=== PATIENT | female | born 1940 | race American Indian/Alaskan Native ===

== ENCOUNTER 2019-03-17 05:42 | Inpatient (IN) | payer MEDICARE ==
[2019-03-17] MEDS ORDERED: SODIUM CHLORIDE 0.9% 500 ML 500 ML IV ONE (06:51)
--- NOTE | 2019-03-17 07:00 | Emergency Department Report ---
ED General Adult HPI - General Chief complaint: Medical Clearance Stated complaint: GENERAL ILLNESS Time Seen by Provider: 03/17/19 06:04 Source: patient, family, EMS (ems notes not available at time of chart dictation), RN notes reviewed Mode of arrival: Stretcher Limitations: Physical Limitation, Other (the patient is a poor historian) - History of Present Illness Initial comments: This is a 78-year-old female. The patient has a history of A. fib and is on Coumadin. She also may have a history of hypertension. Primary care physician is with the [facility]. The patient is brought to the hospital by emergency medical services for evaluation. Patient states that she was using the restroom, urinating, and defecating, and shortly thereafter, felt lightheaded, and "flushed." She denies physical pain at this time. To her best recollecti on, she's not had any hematemesis, bright red blood per rectum, or black bowel movements. She denies urinary symptoms. She endorses 2 months of general confusion and weakness, intermittent lightheadedness, painless loss of vision in the left eye for 2 months, and no focal extremity weakness or numbness. Patient describes her sensation of weakness as feeling lightheaded and generally weak. She feels back to her baseline at this time. She denies urinary symptoms at this time. She denies chest pain and shortness of breath. -: This morning Severity scale (0 -10): 0 Consistency: now resolved Improves with: none Worsens with: none - Related Data Home Medications Medication Instructions Recorded Confirmed Last Taken Metoprolol Tartrate 100 mg PO BID 03/17/19 03/17/19 03/16/19 Potassium Chloride [K-Dur] 10 meq PO QDAY 03/17/19 03/17/19 03/16/19 Warfarin [Coumadin] 5 mg PO QDAY 03/17/19 03/17/19 03/16/19 metOLazone [Zaroxolyn] 2.5 mg PO QDAY 03/17/19 03/17/19 03/16/19 Allergies Allergy/AdvReac Type Severity Reaction Status Date / Time No Known Allergies Allergy Unverified 03/17/19 08:29 ED Review of Systems ROS: Stated complaint: GENERAL ILLNESS Other details as noted in HPI Constitutional: malaise, weakness Eyes: vision change. denies: eye discharge ENT: denies: congestion Respiratory: denies: wheezing Cardiovascular: other Gastrointestinal: denies: nausea, vomiting, hematemesis, melena, hematochezia Genitourinary: denies: dysuria Musculoskeletal: denies: back pain Skin: denies: lesions Neurological: weakness Hematological/Lymphatic: denies: easy bleeding ED Past Medical Hx - Past Medical History Previous Medical History?: Yes Additional medical history: Afib - Social History Smoking Status: Never Smoker Substance Use Type: None - Medications Home Medications: Home Medications Medication Instructions Recorded Confirmed Last Taken Type Metoprolol Tartrate 100 mg PO BID 03/17/19 03/17/19 03/16/19 History Potassium Chloride [K-Dur] 10 meq PO QDAY 03/17/19 03/17/19 03/16/19 History Warfarin [Coumadin] 5 mg PO QDAY 03/17/19 03/17/19 03/16/19 History metOLazone [Zaroxolyn] 2.5 mg PO QDAY 03/17/19 03/17/19 03/16/19 History ED Physical Exam - General Limitations: No Limitations General appearance: alert, in no apparent distress - Head Head exam: Present: atraumatic, normocephalic - Eye Eye exam: Present: normal appearance, EOMI. Absent: nystagmus - ENT ENT exam: Present: normal exam, normal orophraynx, mucous membranes moist, normal external ear exam - Neck Neck exam: Present: normal inspection, full ROM. Absent: tenderness, meningismus - Respiratory Respiratory exam: Present: normal lung sounds bilaterally. Absent: respiratory distress - Cardiovascular Cardiovascular Exam: Present: tachycardia, irregular rhythm, normal heart sounds. Absent: systolic murmur, diastolic murmur, rubs, gallop - GI/Abdominal GI/Abdominal exam: Present: soft. Absent: distended, tenderness, guarding, rebound, rigid, pulsatile mass - Rectal Rectal exam: Present: normal inspection, heme (+) stool, black stool, other (chaperoned by nurse Henrietta Waters) - Extremities Exam Extremities exam: Present: other (2+ pulses noted in the bilateral upper, lower extremities. Compartments soft. No long bony tenderness. The pelvis is stable.). Absent: normal inspection (chronic venous stasis, chronic ulcerated lesions noted in the bilateral lower extremities) - Back Exam Back exam: Present: normal inspection. Absent: tenderness, CVA tenderness (R), CVA tenderness (L), paraspinal tenderness, vertebral tenderness - Neurological Exam Neurological exam: Present: alert, other (there is no facial droop. The tongue is midline. The extraocular movements are intact bilaterally. There is 5/5 strength bilateral upper, lower extremities. There is no past pointing. There is normal [id number].) - Psychiatric Psychiatric exam: Present: anxious - Skin Skin exam: Present: warm, dry, intact, normal color. Absent: rash ED Course Vital Signs 03/17/19 03/17/19 03/17/19 06:07 06:27 07:00 Temperature 98.1 F Pulse Rate 103 H 105 H Respiratory 12 12 24 Rate Blood Pressure Blood Pressure 142/67 125/77 [Left] O2 Sat by Pulse 95 95 100 Oximetry 03/17/19 03/17/19 03/17/19 08:00 09:00 10:26 Temperature 97.7 F 98.1 F Pulse Rate 106 H 111 H Respiratory 20 15 Rate Blood Pressure Blood Pressure 127/80 146/99 [Left] O2 Sat by Pulse 99 95 Oximetry 03/17/19 03/17/19 11:12 12:00 Temperature 97.9 F Pulse Rate 86 Respiratory Rate Blood Pressure 150/79 Blood Pressure [Left] O2 Sat by Pulse Oximetry - Reevaluation(s) Reevaluation #1: 03/17/19 06:58 Differential diagnosis, including not limited to: Orthostasis, vagal event, GI bleed, urinary tract infection, pneumonia, A. fib with RVR Assessment and plan: 78-year-old female with a number of nonspecific complaints, found to have black stool on rectal examination, strongly guaiac positive, A. fib with RVR, rate 105-1 25 bpm. We will withhold nancy blocking agents at this time, as this is most likely compensatory. She will be given a fluid bolus. 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 Patient does not endorse physical pain at this time. Her left-sided visual complaints have been present for 2 months. This can be followed up by her outpatient primary care doctor. Once initial laboratory studies have resulted, we will contact the [facility] to discuss admission. Reevaluation #2: 03/17/19 08:07 Laboratory studies reviewed and appreciated, found to have supratherapeutic INR, renal insufficiency, elevated blood urea nitrogen, all suggestive of upper GI b leed. The thrombin complex concentrate ordered. Multiple phone calls have been made to the pharmacy to expedite dispensation of this medication. Vitamin K has been ordered. Protonix has been ordered. IV fluids ordered. Contacted [place] physician, Dr. Nayely Pina, who has agreed to authorize patient's placement in this particular hospital. Gastroenterology on-call is paced. Hospital physician media relations manager paged. Reevaluation #3: 03/17/19 08:09 Dr Burns to admit - Consultations Consultation #1: 03/17/19 08:13 Discussed with gastroenterology on-call, Dr. Grove, he will follow in consultation ED Medical Decision Making - Lab Data Result diagrams: 03/17/19 09:45 03/17/19 06:56 Vital Signs 03/17/19 03/17/19 06:07 06:27 Temperature 98.1 F Pulse Rate 103 H Respiratory 12 12 Rate Blood Pressure 142/67 [Left] O2 Sat by Pulse 95 95 Oximetry - EKG Data -: EKG Interpreted by Ia Rate: tachycardia - EKG Data When compared to previous EKG there are: previous EKG unavailable 03/17/19 07:01 There is no prior EKG available for comparison. The EKG shows A. fib, RVR, 10 8 bpm, motion artifact, QTC 498 ms, premature ventricular contractions, this EKG is abnormal, the EKG is not consistent with ST elevation myocardial infarction. - Radiology Data Radiology results: pending, report reviewed, image reviewed Print Report Referring Physician: JANNA PIERCE Patient Name: NOVELIST STUART Date of : 1940 Sex: Female Report Date: 2019-03-17 Report Status: Finalized Findings [facility] [address] [place] [address] XRay Report Signed Patient: NOVELIST NARCISO MR#: [id number] : 1940 Acct:[id number] Age/Sex: 78 / F ADM Date: 03/17/19 Loc: ED Attending Dr: Ordering Physician: JANNA PIERCE MD Date of Service: 10/09/19 Procedure(s): XR chest 1V ap Accession Number(s): [id number] cc: JANNA PIERCE MD Fluoro Time In Minutes: CHEST 1 VIEW INDICATION / CLINICAL INFORMATION: dizzy lightheaded weakness, A. fib with RVR. COMPARISON: None available. FINDINGS: SUPPORT DEVICES: None. HEART / MEDIASTINUM: Unremarkable allowing for technique. LUNGS / PLEURA: No significant pulmonary or pleural abnormality. No pneumothorax. ADDITIONAL FINDINGS: No significant additional findings. IMPRESSION: 1. No acute findings. Signer Name: Maria De Jesus Lackey MD Signed: 03/17/2019 7:19 AM Workstation Name: [id number] Transcribed By: C Dictated By: Maria De Jesus Lackey MD Electronically Authenticated By: Maria De Jesus Lackey MD Signed Date/Time: 03/17/19 0719 Critical Care Time: Yes Critical care time in (mins) excluding proc time.: 60 Critical care attestation.: If time is entered above; I have spent that time in minutes in the direct care of this critically ill patient, excluding procedure time. ED Disposition Clinical Impression: LGI bleed, Atrial fibrillation with RVR Coumadin toxicity Qualifiers: Encounter type: initial encounter Injury intent: accidental or unintentional Qualified Code(s): T45.511A - Poisoning by anticoagulants, accidental (unintentional), initial encounter Disposition: 09 OP ADMIT IP TO THIS HOSP Is pt being admited?: Yes Does the pt Need Aspirin: No Condition: Critical
--- NOTE | 2019-03-17 07:23 | XRay Report ---
CHEST 1 VIEW INDICATION / CLINICAL INFORMATION: dizzy lightheaded weakness, A. fib with RVR. COMPARISON: None available. FINDINGS: SUPPORT DEVICES: None. HEART / MEDIASTINUM: Unremarkable allowing for technique. LUNGS / PLEURA: No significant pulmonary or pleural abnormality. No pneumothorax. ADDITIONAL FINDINGS: No significant additional findings. IMPRESSION: 1. No acute findings. Signer Name: Maria De Jesus Lackey MD Signed: 03/17/2019 7:19 AM Workstation Name: [id number]
[2019-03-17 07:30] LABS: Hematocrit 34.7 % (30.3-42.9); Hemoglobin 11.3 gm/dl (10.1-14.3); Mean Corpuscular HGB Conc 33 % (30-34); Mean Corpuscular Volume 86 fl (79-97); Platelet Count 239 K/mm3 (140-440); Red Blood Count 4.01 M/mm3 (3.65-5.03); Red Cell Distribution Width 14.7 % (13.2-15.2)
[2019-03-17 07:42] LABS: Partial Thromboplastin Time 38.1 Sec. (24.2-36.6)
[2019-03-17 07:44] LABS: INR 6.02 (0.87-1.13)
[2019-03-17 07:49] LABS: Albumin 2.9 g/dL (3.9-5); Calcium 9.1 mg/dL (8.4-10.2)
[2019-03-17] MEDS ORDERED: PANTOPRAZOLE 40 MG INJ IV ONE (08:05)
[2019-03-17] MEDS ORDERED: PROTHROMBIN COMPLEX HUMAN IV ONE ×2 (08:30)
[2019-03-17] MEDS ORDERED: PROTHROMBIN HUMAN COMPLEX (PCC) PER 1 UNIT IV ONE (08:30)
[2019-03-17 08:45] LABS: Total Cells Counted 100
[2019-03-17 08:46] LABS: Basophils % (Manual) 0 % (0.0-1.8); Eosinophils % (Manual) 0 % (0.0-4.3)
[2019-03-17 08:47] LABS: Platelet Estimate Consistent w Auto; Target Cells Few
[2019-03-17] MEDS ORDERED: PHYTONADIONE(ADULT ONLY) 10 MG in SODIUM CHLORIDE 0.9% 50 ML IV ONE (09:00)
[2019-03-17 09:06] LABS: Bacteria,Urine 2+ /HPF (Negative); Bilirubin,Urine NEG (Negative); Blood,Urine LG (Negative); Color,Urine Yellow (Yellow); Mucus,Urine FEW /HPF; Protein,Urine <15 mg/dL mg/dL (Negative); Urobilinogen,Urine < 2.0 mg/dL (<2.0)
--- NOTE | 2019-03-17 09:40 | History and Physical Report ---
History of Present Illness Date of examination: 03/17/19 Date of admission: 03/17/19 08:10 Chief complaint: Dizziness History of present illness: 78-year-old -Citizen Of [place] female with past medical history significant for A. fib on Coumadin, hypertension presented to the emergency department with complaints of dizziness that started last night. Patient states she has some confusion and didn't remember the details. Patient said she had dark stool for the last 2 days, but denied any virgie bleeding. Patient is also complaining generalized weakness and aphasia for the last few days. Patient said she has chronic abdominal pain crampy, 8 out of 10 in intensity, radiated to the back, relieved with movement. Patient said that dizziness and confusion resolved by the time I saw her. Patient denied chest pain, shortness of breath, nausea, vomiting. In the emergency department patient's INR was 6 and on rectal examination patient had melena. Patient was given prothrombin complex, vitamin K, GI consulted and asked the [facility] for admission. H/H stable REVIEW OF SYSTEMS: GENERAL: no weight change, no fever HEAD: no head ache EYES: no blurry vision, no acute visual loss EARS: no hearing loss, no discharge, no earache NOSE: no stuffiness, no sneezing, no discharge MOUTH, THROAT AND NECK: no bleeding gums, no sore throat, no swollen neck CARDIAC: no palpitations, no dyspnea on exertion, no orthopnea, no PND, no edema, no chest pain RESPIRATORY: no shortness of breath, no wheeze, no cough, no sputum, no hemoptysis, no asthma GI: As stated in the HPI. URINARY: no change in frequency, no urgency, no polyuria, no hematuria, no incontinence MUSCULOSKELETAL: no muscle weakness, no pain, no joint stiffness NEUROLOGIC: no loss of sensation/numbness, no tingling, no tremors, no weakness/paralysis HEMATOLOGIC: no anemia, no easy bruising SKIN: no rashes ENDOCRINE: no heat/cold intolerance, no polyuria, no polydipsia, no thyroid problems, no diabetes PSYCHIATRIC: no anxiety, no depression, no suicidal ideations Past History Past Medical History: atrial fib, hypertension Past Surgical History: No surgical history Social history: AND/DNR-allow natural . denies: smoking, alcohol abuse, prescription drug abuse, IV drug use Family history: no significant family history Medications and Allergies Allergies Allergy/AdvReac Type Severity Reaction Status Date / Time No Known Allergies Allergy Unverified 03/17/19 08:29 Home Medications Medication Instructions Recorded Confirmed Last Taken Type Metoprolol Tartrate 100 mg PO BID 03/17/19 03/17/19 03/16/19 History Potassium Chloride [K-Dur] 10 meq PO QDAY 03/17/19 03/17/19 03/16/19 History Warfarin [Coumadin] 5 mg PO QDAY 03/17/19 03/17/19 03/16/19 History metOLazone [Zaroxolyn] 2.5 mg PO QDAY 03/17/19 03/17/19 03/16/19 History Active Meds: Active Medications Acetaminophen (Tylenol) 650 mg PO Q4H PRN PRN Reason: Pain MILD(1-3)/Fever >100.5/MALLORY Ceftriaxone Sodium (Rocephin/Ns 1 Gm/50 Ml) 1 gm in 50 mls @ 100 mls/hr IV Q2 4HR LUCIANA; Protocol Sodium Chloride (Nacl 0.9% 1000 Ml) 1,000 mls @ 100 mls/hr IV DIRECT LUCIANA Ondansetron HCl (Zofran) 4 mg IV Q8H PRN PRN Reason: Nausea And Vomiting Sodium Chloride (Sodium Chloride Flush Syringe 10 Ml) 10 ml IV BID LUCIANA Sodium Chloride (Sodium Chloride Flush Syringe 10 Ml) 10 ml IV PRN PRN PRN Reason: LINE FLUSH Exam - Physical Exam Narrative exam: Not in cardiopulmonary distress. The patient appeared well nourished and normally developed. Vital signs as documented. Head exam is unremarkable. No scleral icterus . Neck is without jugular venous distension, thyromegaly, or carotid bruits. Lungs are clear to auscultation. Cardiac exam reveals regular rate and Rhythm. First and second heart sounds normal. No murmurs, rubs or gallops. Abdominal exam reveals normal bowel sounds, no masses, no organomegaly and no aortic enlargement. Extremities are nonedematous and both femoral and pedal pulses are normal. MIDDLE CARD TENDER: Alert and oriented 3. No focal weakness. - Constitutional Vitals: Temp Pulse Resp BP Pulse Ox 97.7 F 111 H 15 146/99 95 03/17/19 09:00 03/17/19 09:00 03/17/19 09:00 03/17/19 09:00 03/17/19 09:00 Results - Labs CBC & Chem 7: 03/17/19 06:56 03/17/19 06:56 Labs: Laboratory Last Values WBC 12.4 K/mm3 (4.5-11.0) H 03/17/19 06:56 RBC 4.01 M/mm3 (3.65-5.03) 03/17/19 06:56 Hgb 11.3 gm/dl (10.1-14.3) 03/17/19 06:56 Hct 34.7 % (30.3-42.9) 03/17/19 06:56 MCV 86 fl (79-97) 03/17/19 06:56 MCH 28 pg (28-32) 03/17/19 06:56 MCHC 33 % (30-34) 03/17/19 06:56 RDW 14.7 % (13.2-15.2) 03/17/19 06:56 Plt Count 239 K/mm3 (140-440) 03/17/19 06:56 Add Manual Diff Complete 03/17/19 06:56 Total Counted 100 03/17/19 06:56 Seg Neuts % (Manual) 90.0 % (40.0-70.0) H 03/17/19 06:56 Band Neutrophils % 0 % 03/17/19 06:56 Lymphocytes % (Manual) 6.0 % (13.4-35.0) L 03/17/19 06:56 Reactive Lymphs % (Man) 1.0 % 03/17/19 06:56 Monocytes % (Manual) 3.0 % (0.0-7.3) 03/17/19 06:56 Eosinophils % (Manual) 0 % (0.0-4.3) 03/17/19 06:56 Basophils % (Manual) 0 % (0.0-1.8) 03/17/19 06:56 Metamyelocytes % 0 % 03/17/19 06:56 Myelocytes % 0 % 03/17/19 06:56 Promyelocytes % 0 % 03/17/19 06:56 Blast Cells % 0 % 03/17/19 06:56 Nucleated RBC % Not Reportable 03/17/19 06:56 Seg Neutrophils # Man 11.2 K/mm3 (1.8-7.7) H 03/17/19 06:56 Band Neutrophils # 0.0 K/mm3 03/17/19 06:56 Lymphocytes # (Manual) 0.7 K/mm3 (1.2-5.4) L 03/17/19 06:56 Abs React Lymphs (Man) 0.1 K/mm3 03/17/19 06:56 Monocytes # (Manual) 0.4 K/mm3 (0.0-0.8) 03/17/19 06:56 Eosinophils # (Manual) 0.0 K/mm3 (0.0-0.4) 03/17/19 06:56 Basophils # (Manual) 0.0 K/mm3 (0.0-0.1) 03/17/19 06:56 Metamyelocytes # 0.0 K/mm3 03/17/19 06:56 Myelocytes # 0.0 K/mm3 03/17/19 06:56 Promyelocytes # 0.0 K/mm3 03/17/19 06:56 Blast Cells # 0.0 K/mm3 03/17/19 06:56 WBC Morphology Not Reportable 03/17/19 06:56 Hypersegmented Neuts Not Reportable 03/17/19 06:56 Hyposegmented Neuts Not Reportable 03/17/19 06:56 Hypogranular Neuts Not Reportable 03/17/19 06:56 Smudge Cells Not Reportable 03/17/19 06:56 Toxic Granulation Not Reportable 03/17/19 06:56 Toxic Vacuolation Not Reportable 03/17/19 06:56 Dohle Bodies Not Reportable 03/17/19 06:56 Pelger-Huet Anomaly Not Reportable 03/17/19 06:56 Aubrey Rods Not Reportable 03/17/19 06:56 Platelet Estimate Consistent w auto 03/17/19 06:56 Clumped Platelets Not Reportable 03/17/19 06:56 Plt Clumps, EDTA Not Reportable 03/17/19 06:56 Large Platelets Not Reportable 03/17/19 06:56 Giant Platelets Not Reportable 03/17/19 06:56 Platelet Satelliting Not Reportable 03/17/19 06:56 Plt Morphology Comment Not Reportable 03/17/19 06:56 RBC Morphology Not Reportable 03/17/19 06:56 Dimorphic RBCs Not Reportable 03/17/19 06:56 Polychromasia Few 03/17/19 06:56 Hypochromasia Not Reportable 03/17/19 06:56 Poikilocytosis Not Reportable 03/17/19 06:56 Anisocytosis Not Reportable 03/17/19 06:56 Microcytosis Not Reportable 03/17/19 06:56 Macrocytosis Not Reportable 03/17/19 06:56 Spherocytes Not Reportable 03/17/19 06:56 Pappenheimer Bodies Not Reportable 03/17/19 06:56 Sickle Cells Not Reportable 03/17/19 06:56 Target Cells Few 03/17/19 06:56 Tear Drop Cells Not Reportable 03/17/19 06:56 Ovalocytes Not Reportable 03/17/19 06:56 Helmet Cells Not Reportable 03/17/19 06:56 Espinal-Witherbee Bodies Not Reportable 03/17/19 06:56 [place] Rings Not Reportable 03/17/19 06:56 Line [place] Cells Not Reportable 03/17/19 06:56 Bite Cells Not Reportable 03/17/19 06:56 Crenated Cell Not Reportable 03/17/19 06:56 Elliptocytes Not Reportable 03/17/19 06:56 Acanthocytes (Spur) Not Reportable 03/17/19 06:56 Rouleaux Not Reportable 03/17/19 06:56 Hemoglobin C Crystals Not Reportable 03/17/19 06:56 Schistocytes Not Reportable 03/17/19 06:56 Malaria parasites Not Reportable 03/17/19 06:56 Harry Bodies Not Reportable 03/17/19 06:56 Hem Pathologist Commnt No 03/17/19 06:56 PT 53.0 Sec. (12.2-14.9) H 03/17/19 06:56 INR 6.02 (0.87-1.13) H* 03/17/19 06:56 APTT 38.1 Sec. (24.2-36.6) H 03/17/19 06:56 Sodium 140 mmol/L (137-145) 03/17/19 06:56 Potassium 4.3 mmol/L (3.6-5.0) 03/17/19 06:56 Chloride 100.1 mmol/L (98-107) 03/17/19 06:56 Carbon Dioxide 21 mmol/L (22-30) L 03/17/19 06:56 Anion Gap 23 mmol/L 03/17/19 06:56 BUN 76 mg/dL (7-17) H 03/17/19 06:56 Creatinine 1.6 mg/dL (0.7-1.2) H 03/17/19 06:56 Estimated GFR 38 ml/min 03/17/19 06:56 BUN/Creatinine Ratio 48 % 03/17/19 06:56 Glucose 132 mg/dL (65-100) H 03/17/19 06:56 Calcium 9.1 mg/dL (8.4-10.2) 03/17/19 06:56 Magnesium 1.80 mg/dL (1.7-2.3) 03/17/19 06:56 Total Bilirubin 0.40 mg/dL (0.1-1.2) 03/17/19 06:56 AST 61 units/L (5-40) H 03/17/19 06:56 ALT 38 units/L (7-56) 03/17/19 06:56 Alkaline Phosphatase 48 units/L (35-129) 03/17/19 06:56 Total Creatine Kinase 147 units/L (30-135) H 03/17/19 06:56 Total Protein 7.2 g/dL (6.3-8.2) 03/17/19 06:56 Albumin 2.9 g/dL (3.9-5) L 03/17/19 06:56 Albumin/Globulin Ratio 0.7 % 03/17/19 06:56 Urine Color Yellow (Yellow) 03/17/19 08:24 Urine Turbidity Slightly-cloudy (Clear) 03/17/19 08:24 Urine pH 5.0 (5.0-7.0) 03/17/19 08:24 Ur Specific [place] 1.012 (1.003-1.030) 03/17/19 08:24 Urine Protein <15 mg/dl mg/dL (Negative) 03/17/19 08:24 Urine Glucose (UA) Neg mg/dL (Negative) 03/17/19 08:24 Urine Ketones Neg mg/dL (Negative) 03/17/19 08:24 Urine Blood Lg (Negative) 03/17/19 08:24 Urine Nitrite Neg (Negative) 03/17/19 08:24 Urine Bilirubin Neg (Negative) 03/17/19 08:24 Urine Urobilinogen < 2.0 mg/dL (<2.0) 03/17/19 08:24 Ur Leukocyte Esterase Lg (Negative) 03/17/19 08:24 Urine WBC (Auto) 100.0 /HPF (0.0-6.0) H 03/17/19 08:24 Urine RBC (Auto) 4.0 /HPF (0.0-6.0) 03/17/19 08:24 U Epithel Cells (Auto) 5.0 /HPF (0-13.0) 03/17/19 08:24 Urine Bacteria (Auto) 2+ /HPF (Negative) 03/17/19 08:24 Urine WBC Clumps 3+ /HPF 03/17/19 08:24 Urine Mucus Few /HPF 03/17/19 08:24 Assessment and Plan Assessment and plan: GI bleed - H&H stable - GI consulted - Patient was given vitamin K and prothrombin complex - We'll monitor H&H Dizziness; due to the above - Was given IV fluids, resolved Supratherapeutic, hypercoagulable state - Patient's INR on admission was 6 - Held Coumadin, given vitamin K and prothrombin complex A. fib - We'll continue metoprolol Hypertension - Continue metoprolol and monitor DVT prophylaxis - SCDs because of GI blood CODE STATUS - DO NOT RESUSCITATE/DO NOT INTUBATE Disposition - Admit to [facility] Advance Directives: Yes VTE prophylaxis?: Mechanical Contraindication Mechanical VTE Prophylaxis: Contraindicated Reason for no VTE Prophylaxis: Bleeding Plan of care discussed with patient/family: Yes
[2019-03-17] MEDS ORDERED: ONDANSETRON 4 MG/2 ML INJ IV PRN (10:00)
[2019-03-17] MEDS ORDERED: METOPROLOL TARTRATE 100 MG PO SCH (10:00)
[2019-03-17 10:07] LABS: Hematocrit 35.7 % (30.3-42.9); Hemoglobin 11.7 gm/dl (10.1-14.3); Mean Corpuscular HGB Conc 33 % (30-34); Mean Corpuscular Volume 86 fl (79-97); Platelet Count 227 K/mm3 (140-440); Red Blood Count 4.14 M/mm3 (3.65-5.03); Red Cell Distribution Width 14.6 % (13.2-15.2)
[2019-03-17 10:19] LABS: INR 1.12 (0.87-1.13)
[2019-03-17] MEDS: cefTRIAXone/NS 1 GM/50 ML 1 GM/50 ML BAG IV SCH (11:04)
--- NOTE | 2019-03-17 11:11 | Gastroenterology Consultation ---
History of Present Illness - Reason for Consult Consult date: 03/17/19 GI bleed Requesting physician: JANNA PIERCE - History of Present Illness The patient is a 78 yo aaf who presents with melena x 2 days. pt reported light headedness and fall when on the camode early this morning. She reports having black appearing stools for the past 2 days. The last episode was prior to admission. She is on warfarin for afib, and was found to have INR of 6 on admission. She admits to taking goody powders recently; Denies abdominal pain or hematemesis. H/H stable on admission, BUN elevated. Vitals otherwise stable. Denies prior h/o gi bleeding. Past History Past Medical History: atrial fib, hypertension Past Surgical History: No surgical history Social history: AND/DNR-allow natural . denies: smoking, alcohol abuse, prescription drug abuse, IV drug use Family history: no significant family history Medications and Allergies Allergies Allergy/AdvReac Type Severity Reaction Status Date / Time No Known Allergies Allergy Unverified 03/17/19 08:29 Home Medications Medication Instructions Recorded Confirmed Last Taken Type Metoprolol Tartrate 100 mg PO BID 03/17/19 03/17/19 03/16/19 History Potassium Chloride [K-Dur] 10 meq PO QDAY 03/17/19 03/17/19 03/16/19 History Warfarin [Coumadin] 5 mg PO QDAY 03/17/19 03/17/19 03/16/19 History metOLazone [Zaroxolyn] 2.5 mg PO QDAY 03/17/19 03/17/19 03/16/19 History Active Meds: Active Medications Acetaminophen (Tylenol) 650 mg PO Q4H PRN PRN Reason: Pain MILD(1-3)/Fever >100.5/MALLORY Ceftriaxone Sodium (Rocephin/Ns 1 Gm/50 Ml) 1 gm in 50 mls @ 100 mls/hr IV Q24HR LUCIANA; Protocol Last Admin: 03/17/19 11:04 Dose: 100 mls/hr Documented by: Sodium Chloride (Nacl 0.9% 1000 Ml) 1,000 mls @ 100 mls/hr IV DIRECT LUCIANA Metoprolol Tartrate (Lopressor) 100 mg PO BID LUCIANA Ondansetron HCl (Zofran) 4 mg IV Q8H PRN PRN Reason: Nausea And Vomiting Sodium Chloride (Sodium Chloride Flush Syringe 10 Ml) 10 ml IV BID LUCIANA Last Admin: 03/17/19 11:05 Dose: 10 ml Documented by: Sodium Chloride (Sodium Chloride Flush Syringe 10 Ml) 10 ml IV PRN PRN PRN Reason: LINE FLUSH Reviewed/updated patient's home and current medications. Review of Systems - Review of Systems All systems: negative (per HPI) Exam - Constitutional Vital Signs: Temp Pulse Resp BP Pulse Ox 98.1 F 111 H 15 146/99 95 03/17/19 10:26 03/17/19 09:00 03/17/19 09:00 03/17/19 09:00 03/17/19 09:00 General appearance: no acute distress - EENT Eyes: PERRL, EOM intact - Respiratory Respiratory effort: normal Respiratory: bilateral: CTA - Cardiovascular Rhythm: regular Heart Sounds: Present: S1 & S2 - Gastrointestinal General gastrointestinal: Present: soft, non-tender, non-distended - Integumentary Integumentary: Present: clear, warm - Neurologic Neurological: alert and oriented x3 - Psychiatric Psychiatric: appropriate mood/affect - Labs CBC & Chem 7: 03/17/19 09:45 03/17/19 06:56 Lab Results: Laboratory Results - last 24 hr 03/17/19 03/17/19 03/17/19 06:56 06:56 06:56 WBC 12.4 H RBC 4.01 Hgb 11.3 Hct 34.7 MCV 86 MCH 28 MCHC 33 RDW 14.7 Plt Count 239 Add Manual Diff Complete Total Counted 100 Seg Neuts % (Manual) 90.0 H Band Neutrophils % 0 Lymphocytes % (Manual) 6.0 L Reactive Lymphs % (Man) 1.0 Monocytes % (Manual) 3.0 Eosinophils % (Manual) 0 Basophils % (Manual) 0 Metamyelocytes % 0 Myelocytes % 0 Promyelocytes % 0 Blast Cells % 0 Nucleated RBC % Not Reportable Seg Neutrophils # Man 11.2 H Band Neutrophils # 0.0 Lymphocytes # (Manual) 0.7 L Abs React Lymphs (Man) 0.1 Monocytes # (Manual) 0.4 Eosinophils # (Manual) 0.0 Basophils # (Manual) 0.0 Metamyelocytes # 0.0 Myelocytes # 0.0 Promyelocytes # 0.0 Blast Cells # 0.0 WBC Morphology Not Reportable Hypersegmented Neuts Not Reportable Hyposegmented Neuts Not Reportable Hypogranular Neuts Not Reportable Smudge Cells Not Reportable Toxic Granulation Not Reportable Toxic Vacuolation Not Reportable Dohle Bodies Not Reportable Pelger-Huet Anomaly Not Reportable Aubrey Rods Not Reportable Platelet Estimate Consistent w auto Clumped Platelets Not Reportable Plt Clumps, EDTA Not Reportable Large Platelets Not Reportable Giant Platelets Not Reportable Platelet Satelliting Not Reportable Plt Morphology Comment Not Reportable RBC Morphology Not Reportable Dimorphic RBCs Not Reportable Polychromasia Few Hypochromasia Not Reportable Poikilocytosis Not Reportable Anisocytosis Not Reportable Microcytosis Not Reportable Macrocytosis Not Reportable Spherocytes Not Reportable Pappenheimer Bodies Not Reportable Sickle Cells Not Reportable Target Cells Few Tear Drop Cells Not Reportable Ovalocytes Not Reportable Helmet Cells Not Reportable Espinal-Essig Bodies Not Reportable [place] Rings Not Reportable Guzman Cells Not Reportable Bite Cells Not Reportable Crenated Cell Not Reportable Elliptocytes Not Reportable Acanthocytes (Spur) Not Reportable Rouleaux Not Reportable Hemoglobin C Crystals Not Reportable Schistocytes Not Reportable Malaria parasites Not Reportable Harry Bodies Not Reportable Hem Pathologist Commnt No PT 53.0 H INR 6.02 H* APTT 38.1 H Sodium 140 Potassium 4.3 Chloride 100.1 Carbon Dioxide 21 L Anion Gap 23 BUN 76 H Creatinine 1.6 H Estimated GFR 38 BUN/Creatinine Ratio 48 Glucose 132 H Calcium 9.1 Magnesium 1.80 Total Bilirubin 0.40 AST 61 H ALT 38 Alkaline Phosphatase 48 Total Creatine Kinase Total Protein 7.2 Albumin 2.9 L Albumin/Globulin Ratio 0.7 Urine Color Urine Turbidity Urine pH Ur Specific [place] Urine Protein Urine Glucose (UA) Urine Ketones Urine Blood Urine Nitrite Urine Bilirubin Urine Urobilinogen Ur Leukocyte Esterase Urine WBC (Auto) Urine RBC (Auto) U Epithel Cells (Auto) Urine Bacteria (Auto) Urine WBC Clumps Urine Mucus Blood Type Antibody Screen 03/17/19 03/17/19 03/17/19 06:56 06:56 08:24 WBC RBC Hgb Hct MCV MCH MCHC RDW Plt Count Add Manual Diff Total Counted Seg Neuts % (Manual) Band Neutrophils % Lymphocytes % (Manual) Reactive Lymphs % (Man) Monocytes % (Manual) Eosinophils % (Manual) Basophils % (Manual) Metamyelocytes % Myelocytes % Promyelocytes % Blast Cells % Nucleated RBC % Seg Neutrophils # Man Band Neutrophils # Lymphocytes # (Manual) Abs React Lymphs (Man) Monocytes # (Manual) Eosinophils # (Manual) Basophils # (Manual) Metamyelocytes # Myelocytes # Promyelocytes # Blast Cells # WBC Morphology Hypersegmented Neuts Hyposegmented Neuts Hypogranular Neuts Smudge Cells Toxic Granulation Toxic Vacuolation Dohle Bodies Pelger-Huet Anomaly Aubrey Rods Platelet Estimate Clumped Platelets Plt Clumps, EDTA Large Platelets Giant Platelets Platelet Satelliting Plt Morphology Comment RBC Morphology Dimorphic RBCs Polychromasia Hypochromasia Poikilocytosis Anisocytosis Microcytosis Macrocytosis Spherocytes Pappenheimer Bodies Sickle Cells Target Cells Tear Drop Cells Ovalocytes Helmet Cells Espinal-Essig Bodies [place] Rings Guzman Cells Bite Cells Crenated Cell Elliptocytes Acanthocytes (Spur) Rouleaux Hemoglobin C Crystals Schistocytes Malaria parasites Harry Bodies Hem Pathologist Commnt PT INR APTT Sodium Potassium Chloride Carbon Dioxide Anion Gap BUN Creatinine Estimated GFR BUN/Creatinine Ratio Glucose Calcium Magnesium Total Bilirubin AST ALT Alkaline Phosphatase Total Creatine Kinase 147 H Total Protein Albumin Albumin/Globulin Ratio Urine Color Yellow Urine Turbidity Slightly-cloudy Urine pH 5.0 Ur Specific [place] 1.012 Urine Protein <15 mg/dl Urine Glucose (UA) Neg Urine Ketones Neg Urine Blood Lg Urine Nitrite Neg Urine Bilirubin Neg Urine Urobilinogen < 2.0 Ur Leukocyte Esterase Lg Urine WBC (Auto) 100.0 H Urine RBC (Auto) 4.0 U Epithel Cells (Auto) 5.0 Urine Bacteria (Auto) 2+ Urine WBC Clumps 3+ Urine Mucus Few Blood Type AB POSITIVE Antibody Screen Negative 03/17/19 03/17/19 09:45 09:45 WBC 11.7 H RBC 4.14 Hgb 11.7 Hct 35.7 MCV 86 MCH 28 MCHC 33 RDW 14.6 Plt Count 227 Add Manual Diff Total Counted Seg Neuts % (Manual) Band Neutrophils % Lymphocytes % (Manual) Reactive Lymphs % (Man) Monocytes % (Manual) Eosinophils % (Manual) Basophils % (Manual) Metamyelocytes % Myelocytes % Promyelocytes % Blast Cells % Nucleated RBC % Seg Neutrophils # Man Band Neutrophils # Lymphocytes # (Manual) Abs React Lymphs (Man) Monocytes # (Manual) Eosinophils # (Manual) Basophils # (Manual) Metamyelocytes # Myelocytes # Promyelocytes # Blast Cells # WBC Morphology Hypersegmented Neuts Hyposegmented Neuts Hypogranular Neuts Smudge Cells Toxic Granulation Toxic Vacuolation Dohle Bodies Pelger-Huet Anomaly Aubrey Rods Platelet Estimate Clumped Platelets Plt Clumps, EDTA Large Platelets Giant Platelets Platelet Satelliting Plt Morphology Comment RBC Morphology Dimorphic RBCs Polychromasia Hypochromasia Poikilocytosis Anisocytosis Microcytosis Macrocytosis Spherocytes Pappenheimer Bodies Sickle Cells Target Cells Tear Drop Cells Ovalocytes Helmet Cells Espinal-Essig Bodies [place] Rings Guzman Cells Bite Cells Crenated Cell Elliptocytes Acanthocytes (Spur) Rouleaux Hemoglobin C Crystals Schistocytes Malaria parasites Harry Bodies Hem Pathologist Commnt PT 14.1 INR 1.12 APTT Sodium Potassium Chloride Carbon Dioxide Anion Gap BUN Creatinine Estimated GFR BUN/Creatinine Ratio Glucose Calcium Magnesium Total Bilirubin AST ALT Alkaline Phosphatase Total Creatine Kinase Total Protein Albumin Albumin/Globulin Ratio Urine Color Urine Turbidity Urine pH Ur Specific [place] Urine Protein Urine Glucose (UA) Urine Ketones Urine Blood Urine Nitrite Urine Bilirubin Urine Urobilinogen Ur Leukocyte Esterase Urine WBC (Auto) Urine RBC (Auto) U Epithel Cells (Auto) Urine Bacteria (Auto) Urine WBC Clumps Urine Mucus Blood Type Antibody Screen Assessment and Plan 1. UGI bleed 2. Supratherapeutic INR 3. Afib on warfarin -pt with signs of UGI bleeding (melena, high BUN) in setting of INR of 6; pt receiving products to correct coagulopathy. currently with stable vitals and normal H/H. trend labs. will plan for EGD tomorrow after reversal of INR, sooner if needed if pt becomes unstable or active bleeding signs.
[2019-03-17] MEDS: METOPROLOL TARTRATE 100 MG TAB PO SCH ×2 (11:12→21:52)
[2019-03-17 11:27] LABS: Band Neutrophils # (Manual) 0.2 K/mm3; Basophils % (Manual) 0 % (0.0-1.8); Eosinophils % (Manual) 0 % (0.0-4.3); Platelet Estimate Consistent w Auto; Target Cells Few; Total Cells Counted 100
[2019-03-17] MEDS ORDERED: PETROLATUM,WHITE 30 GM OINT TP PRN (20:19)
[2019-03-17] MEDS: SODIUM CHLORIDE 0.9% 1000 ML 1,000 ML IV SCH (21:48)
[2019-03-17] MEDS: ACETAMINOPHEN 325 MG TAB PO PRN (22:19)
[2019-03-18 05:23] LABS: Hematocrit 33.1 % (30.3-42.9); Hemoglobin 10.5 gm/dl (10.1-14.3); Mean Corpuscular HGB Conc 32 % (30-34); Mean Corpuscular Volume 88 fl (79-97); Platelet Count 215 K/mm3 (140-440); Red Blood Count 3.76 M/mm3 (3.65-5.03); Red Cell Distribution Width 14.8 % (13.2-15.2)
[2019-03-18 05:41] LABS: Calcium 8.7 mg/dL (8.4-10.2)
[2019-03-18 05:53] LABS: INR 1.09 (0.87-1.13)
[2019-03-18] MEDS: SODIUM CHLORIDE 0.9% 1000 ML 1,000 ML IV SCH ×2 (07:09→17:22)
[2019-03-18 09:35] LABS: Band Neutrophils # (Manual) 0.2 K/mm3; Basophils % (Manual) 0 % (0.0-1.8); Eosinophils % (Manual) 0 % (0.0-4.3); Total Cells Counted 100
[2019-03-18 09:56] LABS: Macrocytosis Rare
[2019-03-18 09:58] LABS: Burr Cells Rare; Target Cells Rare
[2019-03-18 10:06] LABS: Large Platelets Rare
[2019-03-18] MEDS: cefTRIAXone/NS 1 GM/50 ML 1 GM/50 ML BAG IV SCH (10:16)
[2019-03-18 10:39] LABS: Platelet Estimate Consistent w Auto
[2019-03-18] MEDS ORDERED: LIDOCAINE MPF (2%) 20 MG/1 ML VIAL 5 ML ONE (15:00)
--- NOTE | 2019-03-18 15:02 | Progress Note ---
Assessment and Plan Assessment and plan: GI bleed - H&H stable - GI consulted and will do EGD today - Patient was given vitamin K and prothrombin complex and INR is 1.09 today - We'll monitor H&H Dizziness; due to the above - Was given IV fluids, resolved Supratherapeutic, hypercoagulable state - Patient's INR on admission was 6, today 1.09 - Held Coumadin, given vitamin K and prothrombin complex A. fib - We'll continue metoprolol - will start back on warfarin once cleared by GI Hypertension - Continue metoprolol and monitor DVT prophylaxis - SCDs because of GI blood CODE STATUS - DO NOT RESUSCITATE/DO NOT INTUBATE Disposition - continue inpatient care History Interval history: Patient was seen and evaluated this morning, patient doesn't know what color her stool looks today. Hospitalist Physical - Physical exam Narrative exam: Not in cardiopulmonary distress. The patient appeared well nourished and normally developed. Vital signs as documented. Head exam is unremarkable. No scleral icterus . Neck is without jugular venous distension, thyromegaly, or carotid bruits. Lungs are clear to auscultation. Cardiac exam reveals regular rate and Rhythm. First and second heart sounds normal. No murmurs, rubs or gallops. Abdominal exam reveals normal bowel sounds, no masses, no organomegaly and no aortic enlargement. Extremities are nonedematous and both femoral and pedal pulses are normal. 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 No focal weakness. - Constitutional Vitals: Temp Pulse Resp BP Pulse Ox 98.4 F 94 H 16 124/63 100 03/18/19 14:44 03/18/19 14:44 03/18/19 14:44 03/18/19 14:44 03/18/19 14:44 Results - Labs CBC & Chem 7: 03/18/19 03:32 03/18/19 03:32 Labs: Laboratory Last Values WBC 12.1 K/mm3 (4.5-11.0) H 03/18/19 03:32 RBC 3.76 M/mm3 (3.65-5.03) 03/18/19 03:32 Hgb 10.5 gm/dl (10.1-14.3) 03/18/19 03:32 Hct 33.1 % (30.3-42.9) 03/18/19 03:32 MCV 88 fl (79-97) 03/18/19 03:32 MCH 28 pg (28-32) 03/18/19 03:32 MCHC 32 % (30-34) 03/18/19 03:32 RDW 14.8 % (13.2-15.2) 03/18/19 03:32 Plt Count 215 K/mm3 (140-440) 03/18/19 03:32 Add Manual Diff Complete 03/18/19 03:32 Total Counted 100 03/18/19 03:32 Seg Neuts % (Manual) 70.0 % (40.0-70.0) 03/18/19 03:32 Band Neutrophils % 2.0 % 03/18/19 03:32 Lymphocytes % (Manual) 18.0 % (13.4-35.0) 03/18/19 03:32 Reactive Lymphs % (Man) 0 % 03/18/19 03:32 Monocytes % (Manual) 5.0 % (0.0-7.3) 03/18/19 03:32 Eosinophils % (Manual) 0 % (0.0-4.3) 03/18/19 03:32 Basophils % (Manual) 0 % (0.0-1.8) 03/18/19 03:32 Metamyelocytes % 5.0 % 03/18/19 03:32 Myelocytes % 0 % 03/18/19 03:32 Promyelocytes % 0 % 03/18/19 03:32 Blast Cells % 0 % 03/18/19 03:32 Nucleated RBC % Not Reportable 03/18/19 03:32 Seg Neutrophils # Man 8.5 K/mm3 (1.8-7.7) H 03/18/19 03:32 Band Neutrophils # 0.2 K/mm3 03/18/19 03:32 Lymphocytes # (Manual) 2.2 K/mm3 (1.2-5.4) 03/18/19 03:32 Abs React Lymphs (Man) 0.0 K/mm3 03/18/19 03:32 Monocytes # (Manual) 0.6 K/mm3 (0.0-0.8) 03/18/19 03:32 Eosinophils # (Manual) 0.0 K/mm3 (0.0-0.4) 03/18/19 03:32 Basophils # (Manual) 0.0 K/mm3 (0.0-0.1) 03/18/19 03:32 Metamyelocytes # 0.6 K/mm3 03/18/19 03:32 Myelocytes # 0.0 K/mm3 03/18/19 03:32 Promyelocytes # 0.0 K/mm3 03/18/19 03:32 Blast Cells # 0.0 K/mm3 03/18/19 03:32 WBC Morphology Not Reportable 03/18/19 03:32 Hypersegmented Neuts Not Reportable 03/18/19 03:32 Hyposegmented Neuts Not Reportable 03/18/19 03:32 Hypogranular Neuts Not Reportable 03/18/19 03:32 Smudge Cells Not Reportable 03/18/19 03:32 Toxic Granulation Not Reportable 03/18/19 03:32 Toxic Vacuolation Not Reportable 03/18/19 03:32 Dohle Bodies Not Reportable 03/18/19 03:32 Pelger-Huet Anomaly Not Reportable 03/18/19 03:32 Aubrey Rods Not Reportable 03/18/19 03:32 Platelet Estimate Consistent w auto 03/18/19 03:32 Clumped Platelets Not Reportable 03/18/19 03:32 Plt Clumps, EDTA Not Reportable 03/18/19 03:32 Large Platelets Rare 03/18/19 03:32 Giant Platelets Not Reportable 03/18/19 03:32 Platelet Satelliting Not Reportable 03/18/19 03:32 Plt Morphology Comment Not Reportable 03/18/19 03:32 RBC Morphology Not Reportable 03/18/19 03:32 Dimorphic RBCs Not Reportable 03/18/19 03:32 Polychromasia Rare 03/18/19 03:32 Hypochromasia Not Reportable 03/18/19 03:32 Poikilocytosis Not Reportable 03/18/19 03:32 Anisocytosis Not Reportable 03/18/19 03:32 Microcytosis Not Reportable 03/18/19 03:32 Macrocytosis Rare 03/18/19 03:32 Spherocytes Not Reportable 03/18/19 03:32 Pappenheimer Bodies Not Reportable 03/18/19 03:32 Sickle Cells Not Reportable 03/18/19 03:32 Target Cells Rare 03/18/19 03:32 Tear Drop Cells Not Reportable 03/18/19 03:32 Ovalocytes Not Reportable 03/18/19 03:32 Helmet Cells Not Reportable 03/18/19 03:[address] B And C Bodies Not Reportable 03/18/19 03:32 [place] Rings Not Reportable 03/18/19 03:32 Guzman Cells Rare 03/18/19 03:32 Bite Cells Not Reportable 03/18/19 03:32 Crenated Cell Not Reportable 03/18/19 03:32 Elliptocytes Rare 03/18/19 03:32 Acanthocytes (Spur) Not Reportable 03/18/19 03:32 Rouleaux Not Reportable 03/18/19 03:32 Hemoglobin C Crystals Not Reportable 03/18/19 03:32 Schistocytes Not Reportable 03/18/19 03:32 Malaria parasites Not Reportable 03/18/19 03:32 Harry Bodies Not Reportable 03/18/19 03:32 Hem Pathologist Commnt Sent to pathology 03/18/19 03:32 PT 13.8 Sec. (12.2-14.9) 03/18/19 03:32 INR 1.09 (0.87-1.13) 03/18/19 03:32 APTT 38.1 Sec. (24.2-36.6) H 03/17/19 06:56 Sodium 145 mmol/L (137-145) 03/18/19 03:32 Potassium 3.8 mmol/L (3.6-5.0) 03/18/19 03:32 Chloride 108.6 mmol/L (98-107) H 03/18/19 03:32 Carbon Dioxide 20 mmol/L (22-30) L 03/18/19 03:32 Anion Gap 20 mmol/L 03/18/19 03:32 BUN 63 mg/dL (7-17) H 03/18/19 03:32 Creatinine 1.3 mg/dL (0.7-1.2) H 03/18/19 03:32 Estimated GFR 48 ml/min 03/18/19 03:32 BUN/Creatinine Ratio 48 % 03/18/19 03:32 Glucose 66 mg/dL (65-100) 03/18/19 03:32 Calcium 8.7 mg/dL (8.4-10.2) 03/18/19 03:32 Magnesium 1.80 mg/dL (1.7-2.3) 03/17/19 06:56 Total Bilirubin 0.40 mg/dL (0.1-1.2) 03/17/19 06:56 AST 61 units/L (5-40) H 03/17/19 06:56 ALT 38 units/L (7-56) 03/17/19 06:56 Alkaline Phosphatase 48 units/L (35-129) 03/17/19 06:56 Total Creatine Kinase 147 units/L (30-135) H 03/17/19 06:56 Total Protein 7.2 g/dL (6.3-8.2) 03/17/19 06:56 Albumin 2.9 g/dL (3.9-5) L 03/17/19 06:56 Albumin/Globulin Ratio 0.7 % 03/17/19 06:56 Urine Color Yellow (Yellow) 03/17/19 08:24 Urine Turbidity Slightly-cloudy (Clear) 03/17/19 08:24 Urine pH 5.0 (5.0-7.0) 03/17/19 08:24 Ur Specific [place] 1.012 (1.003-1.030) 03/17/19 08:24 Urine Protein <15 mg/dl mg/dL (Negative) 03/17/19 08:24 Urine Glucose (UA) Neg mg/dL (Negative) 03/17/19 08:24 Urine Ketones Neg mg/dL (Negative) 03/17/19 08:24 Urine Blood Lg (Negative) 03/17/19 08:24 Urine Nitrite Neg (Negative) 03/17/19 08:24 Urine Bilirubin Neg (Negative) 03/17/19 08:24 Urine Urobilinogen < 2.0 mg/dL (<2.0) 03/17/19 08:24 Ur Leukocyte Esterase Lg (Negative) 03/17/19 08:24 Urine WBC (Auto) 100.0 /HPF (0.0-6.0) H 03/17/19 08:24 Urine RBC (Auto) 4.0 /HPF (0.0-6.0) 03/17/19 08:24 U Epithel Cells (Auto) 5.0 /HPF (0-13.0) 03/17/19 08:24 Urine Bacteria (Auto) 2+ /HPF (Negative) 03/17/19 08:24 Urine WBC Clumps 3+ /HPF 03/17/19 08:24 Urine Mucus Few /HPF 03/17/19 08:24 Blood Type AB POSITIVE 03/17/19 06:56 Antibody Screen Negative 03/17/19 06:56 Active Medications - Current Medications Current Medications: Generic Name Dose Route Start Last Admin Trade Name Freq PRN Reason Stop Dose Admin Acetaminophen 650 mg 03/17/19 10:00 03/17/19 22:19 Tylenol PO 650 mg Q4H PRN Administration Pain MILD(1-3)/Fever >100.5/MALLORY Hydrophilic Ointment 1 applic 03/17/19 20:19 03/17/19 21:48 Vaseline TP 1 applic PRN PRN Administration Skin Irritation Ceftriaxone Sodium 1 gm in 50 mls @ 100 mls/hr 03/17/19 10:00 03/18/19 10:16 Rocephin/Ns 1 Gm/50 Ml IV 100 mls/hr Q24HR LUCIANA Administration Protocol Sodium Chloride 1,000 mls @ 50 mls/hr 03/18/19 15:00 Nacl 0.9% 1000 Ml IV DIRECT LUCIANA Metoprolol Tartrate 100 mg 03/17/19 10:00 03/17/19 21:52 Lopressor PO 100 mg BID LUCIANA Administration Ondansetron HCl 4 mg 03/17/19 10:00 Zofran IV Q8H PRN Nausea And Vomiting Sodium Chloride 10 ml 03/17/19 10:00 03/18/19 10:16 Sodium Chloride Flush Syringe 10 Ml IV 10 ml BID LUCIANA Administration Sodium Chloride 10 ml 03/17/19 10:00 Sodium Chloride Flush Syringe 10 Ml IV PRN PRN LINE FLUSH Nutrition/Malnutrition Assess - Dietary Evaluation Nutrition/Malnutrition Findings: Nutrition Notes Start: 03/18/19 10:05 Freq: Status: Active Protocol: Document 03/18/19 10:05 RS (Rec: 03/18/19 11:20 RS [id number]) Co-Sign 03/18/19 10:05 LM Nutrition Notes 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 Pt disoriented and is poor hisotiran. Pt admitted for coumadin toxicity and GI bleed . Pt currently NPO d/t EGD test. MD will consult after EGD to clear for diet advancement. Pt has difficulty chewing d/t missing teeth and currently does not have dentures. Burn Absent Trauma Absent GI Symptoms None Current % PO Negligible Minimum of two criteria No #1 Nutrition Diagnosis Inadequate oral intake Etiology EGD test, GI bleed As Evidenced by Signs and Symptoms NPO Is patient on ventilator? No Is Patient Ambulatory and/or Out of Bed No REE-([facility]-confined to bed) 1300.176 Kcal/Kg value to use for calculation 29 Approximate Energy Requirements Using 1749 kcal/Kg Calculation Used for Recommendations Kcal/kg Additional Notes PRO needs (1-1.2g/day): 60-72g/day Fluid needs: 1mL/kcal Nutrition Intervention Change Diet Order: NPO until MD consult Goal #1 Diet advancement Follow-Up By: 03/22/19 Additional Comments F/U for diet advancement
[2019-03-18] MEDS ORDERED: PROPOFOL 200 MG/20 ML VIAL IV ONE (15:10)
--- NOTE | 2019-03-18 15:20 | Anesthesia Consultation ---
Anesthesia Consult and Med Hx Date of service: 03/18/19 - Airway Anesthetic Teeth Evaluation: Edentulous ROM Head & Neck: Adequate Mental/Hyoid Distance: Adequate Mallampati Class: Class II Intubation Access Assessment: Probably Good - Pre-Operative Health Status ASA Pre-Surgery Classification: ASA3 Proposed Anesthetic Plan: MAC - Cardiovascular System Hx Hypertension: Yes Hx Cardia Arrhythmia: Yes (atrial fibrillation) - Central Nervous System Hx Psychiatric Problems: No - Gastrointestinal Hx Gastroesophageal Reflux Disease: Yes (abdominal pain, GI bleed) - Hematic Hx Anemia: Yes Hx Sickle Cell Disease: No
--- NOTE | 2019-03-18 15:21 | Anesthesia Day of Surgery ---
Anesthesia Day of Surgery - Day of Surgery Patient Examined: Yes Patient H&P Reviewed: Yes Patient is NPO: Yes Beta Blockers: Yes
--- NOTE | 2019-03-18 15:41 | Operative Report ---
Operative Report Operative Report: EGD Procedure Note with Biopsies Date of procedure: 03/18/2019 Endoscopist: Danny Grove Pre-op diagnosis/indication: Upper GI bleeding, melena Post-op diagnosis: Large cratered ulcer in gastric fundus, gastritis, ant erosions MEDICATIONS: MAC COMPLICATIONS: No immediate complications ESTIMATED BLOOD LOSS: Minimal DESCRIPTION OF PROCEDURE: After consent was obtained, the patient was placed in the left lateral decubitis position. The olympus endoscope was inserted into the patient's mouth under direct vision, and advanced into the esophagus, stomach, and 2nd portion of the duodenum. The patient tolerated the procedure well. The patient's vital signs were monitored continuously throughout the procedure. FINDINGS: There was a moderate sized hiatal hernia with clean based ant erosions (no high risk bleeding stigmata). There was a large, cratered, necrotic appearing ulcer in the fundus of the stomach. No high risk bleeding stigmata or active bleeding. Likely source of patient's recent melena/GI bleeding. Biopsies were obtained from the edge of the ulcer to rule out dysplasia/malignancy. There was mild erythematous mucosa in the antrum of the stomach. Biopsies were obtained to rule out H pylori. The duodenum appeared normal. IMPRESSION: 1. Large, cratered ulcer in the gastric fundus without high risk bleeding stigmata. Edges biopsied to rule out dysplasia/malignancy 2. Hiatal hernia with ant erosions 3. Gastritis. Biopsied to rule out H pylori. RECOMMENDATIONS: -follow up pathology -hold anticoagulation for 5-7 days; if no further bleeding, restart with close monitoring for further signs of bleeding -PPI BID dosing and carafate QID -will obtain CT scan to r/o any possible mass that may be causing ulcer (given appearance and unusual location) -d/c goody powder/other nsaid's -will start full liquid diet today
[2019-03-18] MEDS: METOPROLOL TARTRATE 100 MG TAB PO SCH ×2 (17:18→21:14)
--- NOTE | 2019-03-18 19:43 | Post Anesthesia Evaluation ---
- Post Anesthesia Evaluation Patient Participated: Yes Airway Patent: Yes Stable Respiratory Function: Yes Nausea/Vomiting: No Temp > 96.8F: Yes Pain Manageable: Yes Adequeate Hydration: Yes Anesthesia Complications: No Block Receding Appropriately: Not Applicable Patient on Ventilator: No
[2019-03-19 04:59] LABS: Hematocrit 30.2 % (30.3-42.9); Hemoglobin 9.9 gm/dl (10.1-14.3); Mean Corpuscular HGB Conc 33 % (30-34); Mean Corpuscular Volume 87 fl (79-97); Platelet Count 184 K/mm3 (140-440); Red Blood Count 3.46 M/mm3 (3.65-5.03); Red Cell Distribution Width 14.8 % (13.2-15.2)
[2019-03-19 05:21] LABS: BUN/Creatinine Ratio 35; Blood Urea Nitrogen 35 mg/dL (7-17); Calcium 8.2 mg/dL (8.4-10.2); Hemolysis Index 1
[2019-03-19 07:35] LABS: Basophils % (Manual) 0 % (0.0-1.8); Eosinophils % (Manual) 0 % (0.0-4.3); Total Cells Counted 100
[2019-03-19 07:36] LABS: Anisocytosis Few; Macrocytosis Rare; Poikilocytosis Few
[2019-03-19 07:38] LABS: Large Platelets Rare; Platelet Estimate Consistent w Auto; Target Cells Rare
[2019-03-19] MEDS: cefTRIAXone/NS 1 GM/50 ML 1 GM/50 ML BAG IV SCH (09:13)
--- NOTE | 2019-03-19 13:12 | Cat Scan Report ---
CT ABDOMEN AND PELVIS WITHOUT CONTRAST INDICATION: gastric ulcer, abdominal pain. TECHNIQUE: Axial CT images were obtained through the abdomen and pelvis after attempted IV contrast. The IV infi ltrated and it was therefore stopped. All CT scans at this location are performed using CT dose reduc tion for ALARA by means of automated exposure control. COMPARISON: None available. FINDINGS: LOWER CHEST: Heart is moderately enlarged. Mild linear bibasilar scarring/atelectasis. LIVER: No significant abnormality. GALLBLADDER: Calcified gallstones. BILE DUCTS: No significant abnormality. PANCREAS: No significant abnormality. SPLEEN: No significant abnormality. ADRENALS: Bilateral enlarged hypodense adrenal glands, left greater than right to be secondary to adr enal hyperplasia or multifocal adenomas. RIGHT KIDNEY and URETER: 12 mm nonobstructing right lower pole renal stone. LEFT KIDNEY and URETER: No significant abnormality. STOMACH and SMALL BOWEL: No significant abnormality. COLON: Extensive sigmoid diverticulosis and moderate colonic diverticulosis APPENDIX: No significant abnormality. PERITONEUM: No free fluid. No free air. No fluid collection. LYMPH NODES: No significant adenopathy. AORTA and ARTERIES: Extensive vascular calcifications within nonaneurysmal abdominal aorta IVC and VEINS: No significant abnormality. URINARY BLADDER: No significant abnormality. REPRODUCTIVE ORGANS: 2 cm calcified uterine fibroid. 2.4 cm left ovarian cyst ADDITIONAL FINDINGS: None. SKELETAL SYSTEM: Advanced multilevel degenerative changes of lumbar spine. IMPRESSION: 1. Extensive diverticulosis without CT evidence for diverticulitis. 2. Leiomyomatous uterus. 3. 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 No ureteral stone or hydronephrosis. 4. Cholelithiasis. 5. Cardiomegaly. 6. 2.4 cm left ovarian cyst. Recommend annual follow-up pelvic ultrasound in this postmenopausal fem milad. Signer Name: Jean Claude Dorado MD Signed: 03/19/2019 1:08 PM Workstation Name: [id number]
[2019-03-19] MEDS: METOPROLOL TARTRATE 100 MG TAB PO SCH ×2 (13:39→21:27)
--- NOTE | 2019-03-19 14:33 | Progress Note ---
Assessment and Plan Assessment and plan: GI bleed - H&H stable - GI consulted and will did EGD and showed that patient has large Cartered ulcer in gastric fundus, gastritis; continue PPI and sucralfate - Patient was given vitamin K and prothrombin complex on admission - We'll monitor H&H, hemoglobin decreased from 11.2 to 9.9 Dizziness; due to the above - Was given IV fluids, resolved Supratherapeutic, hypercoagulable state - Patient's INR on admission was 6, today 1.09 - Held Coumadin, given vitamin K and prothrombin complex A. fib - continue metoprolol, rate controlled -GI recommended to restart Coumadin after 5 days Hypertension - Continue metoprolol and monitor DVT prophylaxis - SCDs because of GI blood CODE STATUS - DO NOT RESUSCITATE/DO NOT INTUBATE Disposition - continue inpatient care History Interval history: Patient was seen and evaluated this morning, patient doesn't know what color her stool looks today. patient didn't have any complaints. Hospitalist Physical - Physical exam Narrative exam: Not in cardiopulmonary distress. The patient appeared well nourished and normally developed. Vital signs as documented. Head exam is unremarkable. No scleral icterus . Neck is without jugular venous distension, thyromegaly, or carotid bruits. Lungs are clear to auscultation. Cardiac exam reveals regular rate and Rhythm. First and second heart sounds normal. No murmurs, rubs or gallops. Abdominal exam reveals normal bowel sounds, no masses, no organomegaly and no aortic enlargement. Extremities are nonedematous and both femoral and pedal pulses are normal. 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 No focal weakness. - Constitutional Vitals: Temp Pulse Resp BP Pulse Ox 97.3 F L 68 18 108/75 96 03/19/19 12:00 03/19/19 13:39 03/19/19 13:00 03/19/19 13:39 03/19/19 12:00 Results - Labs CBC & Chem 7: 03/19/19 04:13 03/19/19 04:13 Labs: Laboratory Last Values WBC 9.8 K/mm3 (4.5-11.0) 03/19/19 04:13 RBC 3.46 M/mm3 (3.65-5.03) L 03/19/19 04:13 Hgb 9.9 gm/dl (10.1-14.3) L 03/19/19 04:13 Hct 30.2 % (30.3-42.9) L 03/19/19 04:13 MCV 87 fl (79-97) 03/19/19 04:13 MCH 29 pg (28-32) 03/19/19 04:13 MCHC 33 % (30-34) 03/19/19 04:13 RDW 14.8 % (13.2-15.2) 03/19/19 04:13 Plt Count 184 K/mm3 (140-440) 03/19/19 04:13 Add Manual Diff Complete 03/19/19 04:13 Total Counted 100 03/19/19 04:13 Seg Neuts % (Manual) 79.0 % (40.0-70.0) H 03/19/19 04:13 Band Neutrophils % 0 % 03/19/19 04:13 Lymphocytes % (Manual) 14.0 % (13.4-35.0) 03/19/19 04:13 Reactive Lymphs % (Man) 0 % 03/19/19 04:13 Monocytes % (Manual) 3.0 % (0.0-7.3) 03/19/19 04:13 Eosinophils % (Manual) 0 % (0.0-4.3) 03/19/19 04:13 Basophils % (Manual) 0 % (0.0-1.8) 03/19/19 04:13 Metamyelocytes % 4.0 % 03/19/19 04:13 Myelocytes % 0 % 03/19/19 04:13 Promyelocytes % 0 % 03/19/19 04:13 Blast Cells % 0 % 03/19/19 04:13 Nucleated RBC % Not Reportable 03/19/19 04:13 Seg Neutrophils # Man 7.7 K/mm3 (1.8-7.7) 03/19/19 04:13 Band Neutrophils # 0.0 K/mm3 03/19/19 04:13 Lymphocytes # (Manual) 1.4 K/mm3 (1.2-5.4) 03/19/19 04:13 Abs React Lymphs (Man) 0.0 K/mm3 03/19/19 04:13 Monocytes # (Manual) 0.3 K/mm3 (0.0-0.8) 03/19/19 04:13 Eosinophils # (Manual) 0.0 K/mm3 (0.0-0.4) 03/19/19 04:13 Basophils # (Manual) 0.0 K/mm3 (0.0-0.1) 03/19/19 04:13 Metamyelocytes # 0.4 K/mm3 03/19/19 04:13 Myelocytes # 0.0 K/mm3 03/19/19 04:13 Promyelocytes # 0.0 K/mm3 03/19/19 04:13 Blast Cells # 0.0 K/mm3 03/19/19 04:13 WBC Morphology Not Reportable 03/19/19 04:13 Hypersegmented Neuts Not Reportable 03/19/19 04:13 Hyposegmented Neuts Not Reportable 03/19/19 04:13 Hypogranular Neuts Not Reportable 03/19/19 04:13 Smudge Cells Not Reportable 03/19/19 04:13 Toxic Granulation Not Reportable 03/19/19 04:13 Toxic Vacuolation Not Reportable 03/19/19 04:13 Dohle Bodies Not Reportable 03/19/19 04:13 Pelger-Huet Anomaly Not Reportable 03/19/19 04:13 Aubrey Rods Not Reportable 03/19/19 04:13 Platelet Estimate Consistent w auto 03/19/19 04:13 Clumped Platelets Not Reportable 03/19/19 04:13 Plt Clumps, EDTA Not Reportable 03/19/19 04:13 Large Platelets Rare 03/19/19 04:13 Giant Platelets Not Reportable 03/19/19 04:13 Platelet Satelliting Not Reportable 03/19/19 04:13 Plt Morphology Comment Not Reportable 03/19/19 04:13 RBC Morphology Not Reportable 03/19/19 04:13 Dimorphic RBCs Not Reportable 03/19/19 04:13 Polychromasia Rare 03/19/19 04:13 Hypochromasia Not Reportable 03/19/19 04:13 Poikilocytosis Few 03/19/19 04:13 Anisocytosis Few 03/19/19 04:13 Microcytosis Not Reportable 03/19/19 04:13 Macrocytosis Rare 03/19/19 04:13 Spherocytes Not Reportable 03/19/19 04:13 Pappenheimer Bodies Not Reportable 03/19/19 04:13 Sickle Cells Not Reportable 03/19/19 04:13 Target Cells Rare 03/19/19 04:13 Tear Drop Cells Not Reportable 03/19/19 04:13 Ovalocytes Not Reportable 03/19/19 04:13 Helmet Cells Not Reportable 03/19/19 04:13 [place]inal-[place] Bodies Not Reportable 03/19/19 04:13 [place] Rings Not Reportable 03/19/19 04:13 [place] Cells Not Reportable 03/19/19 04:13 Bite Cells Not Reportable 03/19/19 04:13 Crenated Cell Not Reportable 03/19/19 04:13 Elliptocytes Rare 03/19/19 04:13 Acanthocytes (Spur) Not Reportable 03/19/19 04:13 Rouleaux Not Reportable 03/19/19 04:13 Hemoglobin C Crystals Not Reportable 03/19/19 04:13 Schistocytes Not Reportable 03/19/19 04:13 Malaria parasites Not Reportable 03/19/19 04:13 Harry Bodies Not Reportable 03/19/19 04:13 Hem Pathologist Commnt No 03/19/19 04:13 PT 13.8 Sec. (12.2-14.9) 03/18/19 03:32 INR 1.09 (0.87-1.13) 03/18/19 03:32 APTT 27.1 Sec. (24.2-36.6) 03/19/19 04:13 Sodium 144 mmol/L (137-145) 03/19/19 04:13 Potassium 3.5 mmol/L (3.6-5.0) L 03/19/19 04:13 Chloride 110.8 mmol/L (98-107) H 03/19/19 04:13 Carbon Dioxide 23 mmol/L (22-30) 03/19/19 04:13 Anion Gap 14 mmol/L 03/19/19 04:13 BUN 35 mg/dL (7-17) H 03/19/19 04:13 Creatinine 1.0 mg/dL (0.7-1.2) 03/19/19 04:13 Estimated GFR > 60 ml/min 03/19/19 04:13 BUN/Creatinine Ratio 35 % 03/19/19 04:13 Glucose 80 mg/dL (65-100) 03/19/19 04:13 Calcium 8.2 mg/dL (8.4-10.2) L 03/19/19 04:13 Magnesium 1.80 mg/dL (1.7-2.3) 03/17/19 06:56 Total Bilirubin 0.40 mg/dL (0.1-1.2) 03/17/19 06:56 AST 61 units/L (5-40) H 03/17/19 06:56 ALT 38 units/L (7-56) 03/17/19 06:56 Alkaline Phosphatase 48 units/L (35-129) 03/17/19 06:56 Total Creatine Kinase 147 units/L (30-135) H 03/17/19 06:56 Total Protein 7.2 g/dL (6.3-8.2) 03/17/19 06:56 Albumin 2.9 g/dL (3.9-5) L 03/17/19 06:56 Albumin/Globulin Ratio 0.7 % 03/17/19 06:56 Urine Color Yellow (Yellow) 03/17/19 08:24 Urine Turbidity Slightly-cloudy (Clear) 03/17/19 08:24 Urine pH 5.0 (5.0-7.0) 03/17/19 08:24 Ur Specific [place] 1.012 (1.003-1.030) 03/17/19 08:24 Urine Protein <15 mg/dl mg/dL (Negative) 03/17/19 08:24 Urine Glucose (UA) Neg mg/dL (Negative) 03/17/19 08:24 Urine Ketones Neg mg/dL (Negative) 03/17/19 08:24 Urine Blood Lg (Negative) 03/17/19 08:24 Urine Nitrite Neg (Negative) 03/17/19 08:24 Urine Bilirubin Neg (Negative) 03/17/19 08:24 Urine Urobilinogen < 2.0 mg/dL (<2.0) 03/17/19 08:24 Ur Leukocyte Esterase Lg (Negative) 03/17/19 08:24 Urine WBC (Auto) 100.0 /HPF (0.0-6.0) H 03/17/19 08:24 Urine RBC (Auto) 4.0 /HPF (0.0-6.0) 03/17/19 08:24 U Epithel Cells (Auto) 5.0 /HPF (0-13.0) 03/17/19 08:24 Urine Bacteria (Auto) 2+ /HPF (Negative) 03/17/19 08:24 Urine WBC Clumps 3+ /HPF 03/17/19 08:24 Urine Mucus Few /HPF 03/17/19 08:24 Blood Type AB POSITIVE 03/17/19 06:56 Antibody Screen Negative 03/17/19 06:56 Active Medications - Current Medications Current Medications: Generic Name Dose Route Start Last Admin Trade Name Freq PRN Reason Stop Dose Admin Acetaminophen 650 mg 03/17/19 10:00 03/17/19 22:19 Tylenol PO 650 mg Q4H PRN Administration Pain MILD(1-3)/Fever >100.5/MALLORY Hydrophilic Ointment 1 applic 03/17/19 20:19 03/17/19 21:48 Vaseline TP 1 applic PRN PRN Administration Skin Irritation Ceftriaxone Sodium 1 gm in 50 mls @ 100 mls/hr 03/17/19 10:00 03/19/19 09:13 Rocephin/Ns 1 Gm/50 Ml IV 100 mls/hr Q24HR LUCIANA Administration Protocol Sodium Chloride 1,000 mls @ 50 mls/hr 03/18/19 15:00 03/18/19 17:22 Nacl 0.9% 1000 Ml IV 50 mls/hr DIRECT LUCIANA Administration Metoprolol Tartrate 100 mg 03/17/19 10:00 03/19/19 13:39 Lopressor PO 100 mg BID LUCIANA Administration Ondansetron HCl 4 mg 03/17/19 10:00 Zofran IV Q8H PRN Nausea And Vomiting Sodium Chloride 10 ml 03/17/19 10:00 03/19/19 13:39 Sodium Chloride Flush Syringe 10 Ml IV 10 ml BID LUCIANA Administration Sodium Chloride 10 ml 03/17/19 10:00 Sodium Chloride Flush Syringe 10 Ml IV PRN PRN LINE FLUSH Nutrition/Malnutrition Assess - Dietary Evaluation Nutrition/Malnutrition Findings: Nutrition Notes Start: 03/18/19 10:05 Freq: Status: Active Protocol: Document 03/18/19 10:05 RS (Rec: 03/18/19 11:20 RS [id number]) Co-Sign 03/18/19 10:05 LM Nutrition Notes Need for Assessment generated from: handkerchief cutter Initial or Follow up Assessment Other Pertinent Diagnosis Coumadin A-Fib, GI Bleed, Aphasia Current Diet NPO Labs/Tests BUN: 63 Cr:1.3 Pertinent Medications reviewed Height 5 ft 4 in Weight 60.3 kg [place] Body Weight (kg) 54.54 BMI 22.8 Intake Prior to Admission Good Weight change and time frame unable to retrieve wt hx Weight Status Appropriate Subjective/Other Information Pt admitted to [facility] yesterday. Pt disoriented and is poor hisotiran. Pt admitted for coumadin toxicity and GI bleed . Pt currently NPO d/t EGD test. MD will consult after EGD to clear for diet advancement. Pt has difficulty chewing d/t missing teeth and currently does not have dentures. Burn Absent Trauma Absent GI Symptoms None Current % PO Negligible Minimum of two criteria No #1 Nutrition Diagnosis Inadequate oral intake Etiology EGD test, GI bleed As Evidenced by Signs and Symptoms NPO Is patient on ventilator? No Is Patient Ambulatory and/or Out of Bed No REE-([facility]-confined to bed) 1300.176 Kcal/Kg value to use for calculation 29 Approximate Energy Requirements Using 1749 kcal/Kg Calculation Used for Recommendations Kcal/kg Additional Notes PRO needs (1-1.2g/day): 60-72g/day Fluid needs: 1mL/kcal Nutrition Intervention Change Diet Order: NPO until MD consult Goal #1 Diet advancement Follow-Up By: 03/22/19 Additional Comments F/U for diet advancement
--- NOTE | 2019-03-19 19:45 | Gastroenterology Progress Note ---
Assessment and Plan 1. Upper GI bleed - H/H stable without further signs of overt bleeding since admission 2. Gastric ulcer - source of bleeding; no high risk bleeding lesion; f/u path to r/o malignancy. repeat EGD in 2 months to assess for healing. PPI BID dosing and carafate QID. avoid nsaid medications. CT scan without acute findings or signs of malignancy. will sign off, please call as needed or with questions. Subjective Date of service: 03/19/19 Principal diagnosis: UGI bleed Interval history: pt seen and examined; no new gi complaints. tolerating clears. no bleeding since procedure. Objective - Constitutional Vitals: Temp Pulse Resp BP Pulse Ox 97.5 F L 92 H 19 153/88 86 03/19/19 16:00 03/19/19 18:01 03/19/19 18:01 03/19/19 18:01 03/19/19 18:01 General appearance: no acute distress - Respiratory Respiratory effort: normal Respiratory: bilateral: CTA - Cardiovascular Rhythm: regular Heart Sounds: Present: S1 & S2 - Gastrointestinal General gastrointestinal: Present: soft, non-tender, non-distended - Neurologic Neurological: alert and oriented x3 - Labs CBC & Chem 7: 03/19/19 04:13 03/19/19 04:13 Labs: Laboratory Results - last 24 hr 03/19/19 03/19/19 03/19/19 04:13 04:13 04:13 WBC 9.8 RBC 3.46 L Hgb 9.9 L Hct 30.2 L MCV 87 MCH 29 MCHC 33 RDW 14.8 Plt Count 184 Add Manual Diff Complete Total Counted 100 Seg Neuts % (Manual) 79.0 H Band Neutrophils % 0 Lymphocytes % (Manual) 14.0 Reactive Lymphs % (Man) 0 Monocytes % (Manual) 3.0 Eosinophils % (Manual) 0 Basophils % (Manual) 0 Metamyelocytes % 4.0 Myelocytes % 0 Promyelocytes % 0 Blast Cells % 0 Nucleated RBC % Not Reportable Seg Neutrophils # Man 7.7 Band Neutrophils # 0.0 Lymphocytes # (Manual) 1.4 Abs React Lymphs (Man) 0.0 Monocytes # (Manual) 0.3 Eosinophils # (Manual) 0.0 Basophils # (Manual) 0.0 Metamyelocytes # 0.4 Myelocytes # 0.0 Promyelocytes # 0.0 Blast Cells # 0.0 WBC Morphology Not Reportable Hypersegmented Neuts Not Reportable Hyposegmented Neuts Not Reportable Hypogranular Neuts Not Reportable Smudge Cells Not Reportable Toxic Granulation Not Reportable Toxic Vacuolation Not Reportable Dohle Bodies Not Reportable Pelger-Huet Anomaly Not Reportable Aubrey Rods Not Reportable Platelet Estimate Consistent w auto Clumped Platelets Not Reportable Plt Clumps, EDTA Not Reportable Large Platelets Rare Giant Platelets Not Reportable Platelet Satelliting Not Reportable Plt Morphology Comment Not Reportable RBC Morphology Not Reportable Dimorphic RBCs Not Reportable Polychromasia Rare Hypochromasia Not Reportable Poikilocytosis Few Anisocytosis Few Microcytosis Not Reportable Macrocytosis Rare Spherocytes Not Reportable Pappenheimer Bodies Not Reportable Sickle Cells Not Reportable Target Cells Rare Tear Drop Cells Not Reportable Ovalocytes Not Reportable Helmet Cells Not Reportable Espinal-[place] Bodies Not Reportable [place] Rings Not Reportable [place] Cells Not Reportable Bite Cells Not Reportable Crenated Cell Not Reportable Elliptocytes Rare Acanthocytes (Spur) Not Reportable Rouleaux Not Reportable Hemoglobin C Crystals Not Reportable Schistocytes Not Reportable Malaria parasites Not Reportable Harry Bodies Not Reportable Hem Pathologist Commnt No APTT 27.1 Sodium 144 Potassium 3.5 L Chloride 110.8 H Carbon Dioxide 23 Anion Gap 14 BUN 35 H Creatinine 1.0 Estimated GFR > 60 BUN/Creatinine Ratio 35 Glucose 80 Calcium 8.2 L
[2019-03-19] MEDS: SODIUM CHLORIDE 0.9% 1000 ML 1,000 ML IV SCH (20:13)
[2019-03-20 07:02] LABS: BUN/Creatinine Ratio 17; Blood Urea Nitrogen 15 mg/dL (7-17); Calcium 8.4 mg/dL (8.4-10.2); Hemolysis Index 8
[2019-03-20] MEDS ORDERED: POTASSIUM CHLORIDE ER 20 MEQ TAB PO NR (08:17)
[2019-03-20] MEDS: cefTRIAXone/NS 1 GM/50 ML 1 GM/50 ML BAG IV SCH (09:39)
[2019-03-20] MEDS: METOPROLOL TARTRATE 100 MG TAB PO SCH (09:39)
[2019-03-20 10:15] LABS: Hematocrit 32.8 % (30.3-42.9); Hemoglobin 10.7 gm/dl (10.1-14.3)
--- NOTE | 2019-03-20 11:06 | Progress Note ---
Assessment and Plan Assessment and plan: GI bleed - H&H stable - GI consulted and will did EGD and showed that patient has large Cartered ulcer in gastric fundus, gastritis; continue PPI and sucralfate - Patient was given vitamin K and prothrombin complex on admission - H&H is stable Dizziness; due to the above - Was given IV fluids, resolved Supratherapeutic, hypercoagulable state - Patient's INR on admission was 6 and after that it was subtherapeutic - Held Coumadin, given vitamin K and prothrombin complex A. fib - continue metoprolol, rate controlled -GI recommended to restart Coumadin after 5 days, Warfarin start date 03/23/19 - Discussed with the patient the risk of CVA and bleeding and patient agreed with the plan Hypertension - Continue metoprolol and monitor DVT prophylaxis - SCDs because of GI blood CODE STATUS - DO NOT RESUSCITATE/DO NOT INTUBATE Deconditioning - PT/OT Disposition - continue inpatient care - Possible discharge tomorrow after PT/OT evaluation. please remind the patient to start her warfarin on 03/23/19. History Interval history: Patient was seen and evaluated this morning, patient didn't have hematemesis or melena. Her stool is brown. Hospitalist Physical - Physical exam Narrative exam: Not in cardiopulmonary distress. The patient appeared well nourished and normally developed. Vital signs as documented. Head exam is unremarkable. No scleral icterus . Neck is without jugular venous distension, thyromegaly, or carotid bruits. Lungs are clear to auscultation. Cardiac exam reveals regular rate and Rhythm. First and second heart sounds normal. No murmurs, rubs or gallops. Abdominal exam reveals normal bowel sounds, no masses, no organomegaly and no aortic enlargement. Extremities are nonedematous and both femoral and pedal pulses are normal. 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 No focal weakness. - Constitutional Vitals: Temp Pulse Resp BP Pulse Ox 97.7 F 133 H 22 141/82 100 03/20/19 08:00 03/20/19 10:00 03/20/19 09:01 03/20/19 10:00 03/20/19 08:01 Results - Labs CBC & Chem 7: 03/20/19 09:58 03/20/19 05:50 Labs: Laboratory Last Values WBC 9.8 K/mm3 (4.5-11.0) 03/19/19 04:13 RBC 3.46 M/mm3 (3.65-5.03) L 03/19/19 04:13 Hgb 10.7 gm/dl (10.1-14.3) 03/20/19 09:58 Hct 32.8 % (30.3-42.9) 03/20/19 09:58 MCV 87 fl (79-97) 03/19/19 04:13 MCH 29 pg (28-32) 03/19/19 04:13 MCHC 33 % (30-34) 03/19/19 04:13 RDW 14.8 % (13.2-15.2) 03/19/19 04:13 Plt Count 184 K/mm3 (140-440) 03/19/19 04:13 Add Manual Diff Complete 03/19/19 04:13 Total Counted 100 03/19/19 04:13 Seg Neuts % (Manual) 79.0 % (40.0-70.0) H 03/19/19 04:13 Band Neutrophils % 0 % 03/19/19 04:13 Lymphocytes % (Manual) 14.0 % (13.4-35.0) 03/19/19 04:13 Reactive Lymphs % (Man) 0 % 03/19/19 04:13 Monocytes % (Manual) 3.0 % (0.0-7.3) 03/19/19 04:13 Eosinophils % (Manual) 0 % (0.0-4.3) 03/19/19 04:13 Basophils % (Manual) 0 % (0.0-1.8) 03/19/19 04:13 Metamyelocytes % 4.0 % 03/19/19 04:13 Myelocytes % 0 % 03/19/19 04:13 Promyelocytes % 0 % 03/19/19 04:13 Blast Cells % 0 % 03/19/19 04:13 Nucleated RBC % Not Reportable 03/19/19 04:13 Seg Neutrophils # Man 7.7 K/mm3 (1.8-7.7) 03/19/19 04:13 Band Neutrophils # 0.0 K/mm3 03/19/19 04:13 Lymphocytes # (Manual) 1.4 K/mm3 (1.2-5.4) 03/19/19 04:13 Abs React Lymphs (Man) 0.0 K/mm3 03/19/19 04:13 Monocytes # (Manual) 0.3 K/mm3 (0.0-0.8) 03/19/19 04:13 Eosinophils # (Manual) 0.0 K/mm3 (0.0-0.4) 03/19/19 04:13 Basophils # (Manual) 0.0 K/mm3 (0.0-0.1) 03/19/19 04:13 Metamyelocytes # 0.4 K/mm3 03/19/19 04:13 Myelocytes # 0.0 K/mm3 03/19/19 04:13 Promyelocytes # 0.0 K/mm3 03/19/19 04:13 Blast Cells # 0.0 K/mm3 03/19/19 04:13 WBC Morphology Not Reportable 03/19/19 04:13 Hypersegmented Neuts Not Reportable 03/19/19 04:13 Hyposegmented Neuts Not Reportable 03/19/19 04:13 Hypogranular Neuts Not Reportable 03/19/19 04:13 Smudge Cells Not Reportable 03/19/19 04:13 Toxic Granulation Not Reportable 03/19/19 04:13 Toxic Vacuolation Not Reportable 03/19/19 04:13 Dohle Bodies Not Reportable 03/19/19 04:13 Pelger-Huet Anomaly Not Reportable 03/19/19 04:13 Aubrey Rods Not Reportable 03/19/19 04:13 Platelet Estimate Consistent w auto 03/19/19 04:13 Clumped Platelets Not Reportable 03/19/19 04:13 Plt Clumps, EDTA Not Reportable 03/19/19 04:13 Large Platelets Rare 03/19/19 04:13 Giant Platelets Not Reportable 03/19/19 04:13 Platelet Satelliting Not Reportable 03/19/19 04:13 Plt Morphology Comment Not Reportable 03/19/19 04:13 RBC Morphology Not Reportable 03/19/19 04:13 Dimorphic RBCs Not Reportable 03/19/19 04:13 Polychromasia Rare 03/19/19 04:13 Hypochromasia Not Reportable 03/19/19 04:13 Poikilocytosis Few 03/19/19 04:13 Anisocytosis Few 03/19/19 04:13 Microcytosis Not Reportable 03/19/19 04:13 Macrocytosis Rare 03/19/19 04:13 Spherocytes Not Reportable 03/19/19 04:13 Pappenheimer Bodies Not Reportable 03/19/19 04:13 Sickle Cells Not Reportable 03/19/19 04:13 Target Cells Rare 03/19/19 04:13 Tear Drop Cells Not Reportable 03/19/19 04:13 Ovalocytes Not Reportable 03/19/19 04:13 Helmet Cells Not Reportable 03/19/19 04:13 [place] Bodies Not Reportable 03/19/19 04:13 [place] Rings Not Reportable 03/19/19 04:13 [place] Cells Not Reportable 03/19/19 04:13 Bite Cells Not Reportable 03/19/19 04:13 Crenated Cell Not Reportable 03/19/19 04:13 Elliptocytes Rare 03/19/19 04:13 Acanthocytes (Spur) Not Reportable 03/19/19 04:13 Rouleaux Not Reportable 03/19/19 04:13 Hemoglobin C Crystals Not Reportable 03/19/19 04:13 Schistocytes Not Reportable 03/19/19 04:13 Malaria parasites Not Reportable 03/19/19 04:13 Harry Bodies Not Reportable 03/19/19 04:13 Hem Pathologist Commnt No 03/19/19 04:13 PT 13.8 Sec. (12.2-14.9) 03/18/19 03:32 INR 1.09 (0.87-1.13) 03/18/19 03:32 APTT 29.1 Sec. (24.2-36.6) 03/20/19 05:50 Sodium 144 mmol/L (137-145) 03/20/19 05:50 Potassium 3.4 mmol/L (3.6-5.0) L 03/20/19 05:50 Chloride 108.7 mmol/L (98-107) H 03/20/19 05:50 Carbon Dioxide 20 mmol/L (22-30) L 03/20/19 05:50 Anion Gap 19 mmol/L 03/20/19 05:50 BUN 15 mg/dL (7-17) 03/20/19 05:50 Creatinine 0.9 mg/dL (0.7-1.2) 03/20/19 05:50 Estimated GFR > 60 ml/min 03/20/19 05:50 BUN/Creatinine Ratio 17 % 03/20/19 05:50 Glucose 94 mg/dL (65-100) 03/20/19 05:50 Calcium 8.4 mg/dL (8.4-10.2) 03/20/19 05:50 Magnesium 1.80 mg/dL (1.7-2.3) 03/17/19 06:56 Total Bilirubin 0.40 mg/dL (0.1-1.2) 03/17/19 06:56 AST 61 units/L (5-40) H 03/17/19 06:56 ALT 38 units/L (7-56) 03/17/19 06:56 Alkaline Phosphatase 48 units/L (35-129) 03/17/19 06:56 Total Creatine Kinase 147 units/L (30-135) H 03/17/19 06:56 Total Protein 7.2 g/dL (6.3-8.2) 03/17/19 06:56 Albumin 2.9 g/dL (3.9-5) L 03/17/19 06:56 Albumin/Globulin Ratio 0.7 % 03/17/19 06:56 Urine Color Yellow (Yellow) 03/17/19 08:24 Urine Turbidity Slightly-cloudy (Clear) 03/17/19 08:24 Urine pH 5.0 (5.0-7.0) 03/17/19 08:24 Ur Specific [place] 1.012 (1.003-1.030) 03/17/19 08:24 Urine Protein <15 mg/dl mg/dL (Negative) 03/17/19 08:24 Urine Glucose (UA) Neg mg/dL (Negative) 03/17/19 08:24 Urine Ketones Neg mg/dL (Negative) 03/17/19 08:24 Urine Blood Lg (Negative) 03/17/19 08:24 Urine Nitrite Neg (Negative) 03/17/19 08:24 Urine Bilirubin Neg (Negative) 03/17/19 08:24 Urine Urobilinogen < 2.0 mg/dL (<2.0) 03/17/19 08:24 Ur Leukocyte Esterase Lg (Negative) 03/17/19 08:24 Urine WBC (Auto) 100.0 /HPF (0.0-6.0) H 03/17/19 08:24 Urine RBC (Auto) 4.0 /HPF (0.0-6.0) 03/17/19 08:24 U Epithel Cells (Auto) 5.0 /HPF (0-13.0) 03/17/19 08:24 Urine Bacteria (Auto) 2+ /HPF (Negative) 03/17/19 08:24 Urine WBC Clumps 3+ /HPF 03/17/19 08:24 Urine Mucus Few /HPF 03/17/19 08:24 Blood Type AB POSITIVE 03/17/19 06:56 Antibody Screen Negative 03/17/19 06:56 Active Medications - Current Medications Current Medications: Generic Name Dose Route Start Last Admin Trade Name Freq PRN Reason Stop Dose Admin Acetaminophen 650 mg 03/17/19 10:00 03/17/19 22:19 Tylenol PO 650 mg Q4H PRN Administration Pain MILD(1-3)/Fever >100.5/MALLORY Hydrophilic Ointment 1 applic 03/17/19 20:19 03/17/19 21:48 Vaseline TP 1 applic PRN PRN Administration Skin Irritation Ceftriaxone Sodium 1 gm in 50 mls @ 100 mls/hr 03/17/19 10:00 03/20/19 09:39 Rocephin/Ns 1 Gm/50 Ml IV 100 mls/hr Q24HR LUCIANA Administration Protocol Sodium Chloride 1,000 mls @ 50 mls/hr 03/18/19 15:00 03/19/19 20:13 Nacl 0.9% 1000 Ml IV 50 mls/hr DIRECT LUCIANA Administration Metoprolol Tartrate 100 mg 03/17/19 10:00 03/20/19 09:39 Lopressor PO 100 mg BID LUCIANA Administration Ondansetron HCl 4 mg 03/17/19 10:00 Zofran IV Q8H PRN Nausea And Vomiting Pantoprazole Sodium 40 mg 03/20/19 11:00 Protonix PO BID LUCIANA Sodium Chloride 10 ml 03/17/19 10:00 03/20/19 09:39 Sodium Chloride Flush Syringe 10 Ml IV 10 ml BID LUCIANA Administration Sodium Chloride 10 ml 03/17/19 10:00 Sodium Chloride Flush Syringe 10 Ml IV PRN PRN LINE FLUSH Sucralfate 1 gm 03/20/19 11:30 Carafate PO ACHS [facility] Nutrition/Malnutrition Assess - Dietary Evaluation Nutrition/Malnutrition Findings: Nutrition Notes Start: 03/18/19 10:05 Freq: Status: Active Protocol: Document 03/18/19 10:05 RS (Rec: 03/18/19 11:20 RS [id number]) Co-Sign 03/18/19 10:05 LM Nutrition Notes Need for Assessment generated from: director of rehabilitative services Initial or Follow up Assessment Other Pertinent Diagnosis Coumadin A-Fib, GI Bleed, Aphasia Current Diet NPO Labs/Tests BUN: 63 Cr:1.3 Pertinent Medications reviewed Height 5 ft 4 in Weight 60.3 kg Benedict Body Weight (kg) 54.54 BMI 22.8 Intake Prior to Admission Good Weight change and time frame unable to retrieve wt hx Weight Status Appropriate Subjective/Other Information Pt admitted to [facility] yesterday. Pt disoriented and is poor hisotiran. Pt admitted for coumadin toxicity and GI bleed . Pt currently NPO d/t EGD test. MD will consult after EGD to clear for diet advancement. Pt has difficulty chewing d/t missing teeth and currently does not have dentures. Burn Absent Trauma Absent GI Symptoms None Current % PO Negligible Minimum of two criteria No #1 Nutrition Diagnosis Inadequate oral intake Etiology EGD test, GI bleed As Evidenced by Signs and Symptoms NPO Is patient on ventilator? No Is Patient Ambulatory and/or Out of Bed No REE-([facility]-confined to bed) 1300.176 Kcal/Kg value to use for calculation 29 Approximate Energy Requirements Using 1749 kcal/Kg Calculation Used for Recommendations Kcal/kg Additional Notes PRO needs (1-1.2g/day): 60-72g/day Fluid needs: 1mL/kcal Nutrition Intervention Change Diet Order: NPO until MD consult Goal #1 Diet advancement Follow-Up By: 03/22/19 Additional Comments F/U for diet advancement
[2019-03-20] MEDS: PANTOPRAZOLE 40 MG TAB PO SCH ×2 (12:35→22:04)
[2019-03-20] MEDS: SUCRALFATE 1 GM TAB PO SCH ×3 (13:00→22:04)
[2019-03-20] MEDS: SODIUM CHLORIDE 0.9% 1000 ML 1,000 ML IV SCH (18:38)
[2019-03-20] MEDS: ACETAMINOPHEN 325 MG TAB PO PRN (22:04)
[2019-03-21] MEDS: METOPROLOL TARTRATE 100 MG TAB PO SCH ×2 (01:08→09:28)
[2019-03-21] MEDS: SUCRALFATE 1 GM TAB PO SCH ×3 (08:30→16:20)
[2019-03-21] MEDS: PANTOPRAZOLE 40 MG TAB PO SCH (09:29)
[2019-03-21] MEDS: cefTRIAXone/NS 1 GM/50 ML 1 GM/50 ML BAG IV SCH (09:29)
[2019-03-21] MEDS: SODIUM CHLORIDE 0.9% 1000 ML 1,000 ML IV SCH (11:59)
[2019-03-21 12:07] VITALS: BP 117/59
--- NOTE | 2019-03-21 13:36 | Discharge Summary ---
Providers - Providers Date of Admission: 03/17/19 08:10 Date of discharge: 03/21/19 Attending physician: SHERLY CONCEPCION 03/17/19 06:52 Consult to Physician [CONS] Urgent Comment: Consulting Provider: BETTINA DOS SANTOS Physician Instructions: Reason For Exam: gi bleed 03/20/19 08:18 Physical Therapy Evaluation and Treat [CONS] Routine Comment: Reason For Exam: deconditioning 03/20/19 08:19 Occupational Therapy Evaluate and Treat [CONS] Routine Comment: Reason For Exam: deconditioning 03/20/19 09:54 Consult to Wound/ET Nurse [CONS] Routine Reason For Exam: wound eval- bilateral anterior legs/shins Hospitalization Condition: Stable Pertinent studies: CXR CT abdoemn/pelvis Hospital course: 78-year-old -[place] female with past medical history significant for A. fib on Coumadin, hypertension presented to the emergency department with complaints of dizziness with dark stool for the last 2 days, but denied any f rank bleeding. Patient is also complained generalized weakness for the last few days. In the emergency department patient's INR was 6 and on rectal examination patient had melena. Patient was given prothrombin complex, vitamin K, GI consulted and asked the [facility] [place] for admission for further evaluation. Discharge diagnosis and mx: Acute GI bleed - H&H stable - GI consulted and s/p EGD showed that patient has large Cartered ulcer in gastric fundus, gastritis; continue PPI and sucralfate - Patient was given vitamin K and prothrombin complex on admission - will cont outpt f/u Dizziness; due to the above - Was given IV fluids, resolved Supratherapeutic, hypercoagulable state from coumadin - Patient's INR on admission was 6 and after that it was subtherapeutic - Held Coumadin, given vitamin K and prothrombin complex - will start warfarin on 03/23/19 per GI A. fib - continue metoprolol, rate controlled -GI recommended to restart Coumadin after 5 days, Warfarin start date 03/23/19 - Discussed with the patient the risk of CVA and bleeding risk and patient agreed with the plan Hypertension - Continue metoprolol, stable DVT prophylaxis - SCDs because of GI blood CODE STATUS - DO NOT RESUSCITATE/DO NOT INTUBATE Deconditioning from acute blood loss - doing better, ambulating w/o difficulty Disposition - Home with HH. please start warfarin on 03/23/19. Disposition: [id number]/[id number] HOME UNDER HOME [facility] Time spent for discharge: 34 minutes Core Measure Documentation - Palliative Care Palliative Care/ Comfort Measures: Not Applicable - Core Measures Any of the following diagnoses?: none Exam - Physical Exam Narrative exam: Not in cardiopulmonary distress. The patient appeared well nourished and normally developed. Vital signs as documented. Head exam is unremarkable. No scleral icterus . Neck is without jugular venous distension, thyromegaly, or carotid bruits. Lungs are clear to auscultation. Cardiac exam reveals regular rate and Rhythm. First and second heart sounds normal. No murmurs, rubs or gallops. Abdominal exam reveals normal bowel sounds, no masses, no organomegaly and no aortic enlargement. Extremities are nonedematous and both femoral and pedal pulses are normal. 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 No focal weakness. - Constitutional Vitals: Temp Pulse Resp BP Pulse Ox 97.0 F L 51 L 18 117/59 97 03/21/19 11:57 03/21/19 04:09 03/21/19 11:57 03/21/19 11:57 03/21/19 04:25 Plan Activity: advance as tolerated Weight Bearing Status: Non-Weight Bearing Diet: advance as tolerated Follow up with: PRAVEEN VIDAL [Other] - 3-5 Days Prescriptions: Sucralfate [Carafate] 1 gm PO ACHS #120 tablet Pantoprazole [Protonix TAB] 40 mg PO BID #60 tablet
[2019-03-21 17:12] LABS: Hematocrit 29.8 % (30.3-42.9); Hemoglobin 9.7 gm/dl (10.1-14.3); Mean Corpuscular HGB Conc 33 % (30-34); Mean Corpuscular Volume 89 fl (79-97); Platelet Count 157 K/mm3 (140-440); Red Blood Count 3.34 M/mm3 (3.65-5.03); Red Cell Distribution Width 15.6 % (13.2-15.2)
[2019-03-21 17:33] LABS: BUN/Creatinine Ratio 10; Blood Urea Nitrogen 8 mg/dL (7-17); Calcium 8.1 mg/dL (8.4-10.2); Hemolysis Index 4
== END 2019-03-21 20:02 | disposition home health service (06) | DRG 377 ==
LOC: ED 05:42 → IMCU 08:10 → 4A 03-20 17:44 → UNDODISIN 03-21 14:35
PROVIDERS: ADMIT Internal Medicine; ATTEND Internal Medicine
PROC: 0DB68ZX Excision of Stomach, Via Natural or Artificial Opening Endoscopic, Diagnostic (ICD-10-PCS; principal; 2019-03-18)
DX: K25.4 Chronic or unspecified gastric ulcer with hemorrhage (principal); N17.0 Acute kidney failure with tubular necrosis; D68.59 Other primary thrombophilia; I48.91 Unspecified atrial fibrillation; Z66 Do not resuscitate; I10 Essential (primary) hypertension; K21.9 Gastro-esophageal reflux disease without esophagitis; K44.9 Diaphragmatic hernia without obstruction or gangrene; T45.515A Adverse effect of anticoagulants, initial encounter; Z79.01 Long term (current) use of anticoagulants; Y92.89 Other specified places as the place of occurrence of the external cause; Z79.899 Other long term (current) drug therapy
CPT/HCPCS: 36415; 71045; 74177; 80048; 80053; 81001; 82271; 82550; 83735; 85007; 85014; 85018; 85025; 85027; 85610; 85730; 86850; 86900; 86901; 87086; 88305; 88342; 93005; 93010; 96374; G0378; A6250; C9113; J0696; J2704; J3430; J7030; J7040; J7195; Q9967